=== PATIENT | female | born 1940 | race African-American/Black ===

== ENCOUNTER 2022-04-21 21:34 | Inpatient (IN) | payer OTHER ==
[2022-04-21] MEDS ORDERED: ACETAMINOPHEN 1000 MG/100 ML BAG IVPB ONE (23:01)
[2022-04-21] MEDS ORDERED: ACETAMINOPHEN INJECTION 100 ML IVPB ONE (23:09)
[2022-04-21 23:36] LABS: BASO % 0.4 % (0-2.0); EOS % 0.6 % (0-4.5); HEMATOCRIT 37.4 % (32.4-45.2); HEMOGLOBIN 12.4 GM/dL (10.7-15.3); LYMPH % 14.5 % (8-40); MCH 27.8 pg (25.7-33.7); MCHC 33.1 g/dl (32.0-36.0); MEAN PLT VOLUME 7.4 fl (7.5-11.1); MONO % 6.1 % (3.8-10.2); NEUT % 78.4 % (42.8-82.8); PLATELET COUNT 292 10^3/uL (134-434); RBC 4.45 M/mm3 (3.60-5.2); RDW 12.3 % (11.6-15.6); WHITE BLOOD COUNT 6.2 K/mm3 (4.0-10.0)
[2022-04-21 23:47] LABS: ACTIVATED PTT 35.2 SECONDS (25.2-36.5); INR 1.05 (0.83-1.09); PROTHROMBIN TIME (PATIENT) 12.1 SEC (9.7-13.0)
[2022-04-21 23:55] LABS: CHLORIDE 98 mmol/L (98-107); SODIUM 131 mmol/L (136-145)
[2022-04-21 23:57] LABS: CALCIUM 8.8 mg/dL (8.5-10.1)
[2022-04-21 23:58] LABS: ALBUMIN 3.5 g/dl (3.4-5.0); ANION GAP 5 MMOL/L (8-16); BLOOD UREA NITROGEN 22.6 mg/dL (7-18); CO2 28 mmol/L (21-32); GLUCOSE,RANDOM 351 mg/dL (74-106)
[2022-04-22 00:01] LABS: CREATININE 1.2 mg/dL (0.55-1.3); SGOT/AST 30 U/L (15-37)
[2022-04-22 00:03] LABS: BILIRUBIN,TOTAL 0.5 mg/dL (0.2-1); TOT PROT 6.8 g/dl (6.4-8.2)
[2022-04-22 00:04] LABS: ALK PHOS 91 U/L (45-117)
[2022-04-22 00:06] LABS: N-TERMINAL BNP 81.1 pg/ml (5-450)
[2022-04-22 00:27] LABS: EPI CELLS 8 /uL (0-25.1); HYALINE CASTS 1 /uL (0-3.1); PH,URINE 5.5 (5.0-8.0); URINE APPEARANCE TURBID; URINE BACTERIA 341 /uL (0-1359); URINE BILIRUBIN NEGATIVE (NEGATIVE); URINE COLOR YELLOW; URINE GLUCOSE (UA) 2+ (NEGATIVE); URINE KETONE TRACE (NEGATIVE); URINE LEUK ESTERASE 3+ (NEGATIVE); URINE NITRITE NEGATIVE (NEGATIVE); URINE PROTEIN 2+ (NEGATIVE); URINE RBC 24 /uL (0-23.9); URINE WBC 1817 /uL (0-25.8)
[2022-04-22 00:30] LABS: SGPT/ALT < 6 U/L (13-61)
[2022-04-22] MEDS ORDERED: CEFTRIAXONE 1 GM in DEXTROSE 5%-WATER - 100 ML IVPB ONE (00:41)
[2022-04-22] MEDS ORDERED: CEFTRIAXONE 1 GM/50 ML BAG ONE (01:22)
[2022-04-22 02:16] LABS: CALCIUM 8.4 mg/dL (8.5-10.1)
[2022-04-22 02:17] LABS: BLOOD UREA NITROGEN 22.4 mg/dL (7-18)
[2022-04-22 02:20] LABS: CREATININE 1.1 mg/dL (0.55-1.3)
[2022-04-22] MEDS ORDERED: ACETAMINOPHEN INJECTION 100 ML IVPB ONE ×3 (04:53→17:39)
[2022-04-22] MEDS: SODIUM CHLORIDE 1,000 ML IV SCH (05:00)
[2022-04-22] MEDS: ACETAMINOPHEN 1000 MG/100 ML BAG IVPB SCH ×2 (05:00→09:38)
[2022-04-22 07:34] LABS: BASO % 0.3 % (0-2.0); EOS % 0.4 % (0-4.5); HEMATOCRIT 33.8 % (32.4-45.2); HEMOGLOBIN 11.3 GM/dL (10.7-15.3); LYMPH % 14.5 % (8-40); MCH 28.1 pg (25.7-33.7); MCHC 33.5 g/dl (32.0-36.0); MEAN CELL VOLUME 83.7 fl (80-96); MEAN PLT VOLUME 7.7 fl (7.5-11.1); NEUT % 76.8 % (42.8-82.8); PLATELET COUNT 253 10^3/uL (134-434); RBC 4.04 M/mm3 (3.60-5.2); RDW 12.5 % (11.6-15.6); WHITE BLOOD COUNT 5.9 K/mm3 (4.0-10.0)
[2022-04-22 08:01] LABS: CHLORIDE 100 mmol/L (98-107); SODIUM 136 mmol/L (136-145)
[2022-04-22 08:10] LABS: CALCIUM 8.4 mg/dL (8.5-10.1)
[2022-04-22 08:11] LABS: ALBUMIN 3.2 g/dl (3.4-5.0); ANION GAP 10 MMOL/L (8-16); BLOOD UREA NITROGEN 19.4 mg/dL (7-18); CO2 26 mmol/L (21-32); GLUCOSE,RANDOM 264 mg/dL (74-106); MAGNESIUM 1.8 mg/dL (1.8-2.4)
[2022-04-22 08:14] LABS: PHOSPHOROUS 3.1 mg/dL (2.5-4.9); SGOT/AST 20 U/L (15-37); SGPT/ALT < 6 U/L (13-61)
[2022-04-22 08:16] LABS: BILIRUBIN,TOTAL 0.7 mg/dL (0.2-1)
[2022-04-22 08:17] LABS: ALK PHOS 77 U/L (45-117)
[2022-04-22] MEDS: INSULIN SLIDING SCALE (NOVOLOG) 1 VIAL SQ SCH ×4 (08:37→21:44)
[2022-04-22] MEDS ORDERED: traMADol HCL 50 MG TABLET PO PRN (11:03)
[2022-04-22] MEDS ORDERED: traMADol HCL 50 MG TABLET ONE (12:19)
[2022-04-22] MEDS ORDERED: INSULIN (NOVOLOG) ASPART 100 UNITS/ML 10ML VIAL ONE ×2 (14:20→17:40)
[2022-04-22] MEDS: ACETAMINOPHEN 1000 MG/100 ML BAG IVPB PRN (17:47)
[2022-04-22] MEDS: CEFTRIAXONE 1 GM in DEXTROSE 5%-WATER - 50 ML IVPB SCH (21:42)
[2022-04-23 00:26] VITALS: BMI 23.2
[2022-04-23] MEDS: ACETAMINOPHEN 1000 MG/100 ML BAG IVPB PRN ×3 (05:36→20:15)
[2022-04-23] MEDS: SODIUM CHLORIDE 1,000 ML IV SCH (05:37)
[2022-04-23] MEDS: INSULIN SLIDING SCALE (NOVOLOG) 1 VIAL SQ SCH ×4 (06:54→23:11)
[2022-04-23 07:52] LABS: BASO % 0.3 % (0-2.0); EOS % 1.6 % (0-4.5); HEMATOCRIT 34.1 % (32.4-45.2); HEMOGLOBIN 11.3 GM/dL (10.7-15.3); LYMPH % 21.7 % (8-40); MCH 28.2 pg (25.7-33.7); MCHC 33.2 g/dl (32.0-36.0); MEAN CELL VOLUME 84.9 fl (80-96); MEAN PLT VOLUME 7.4 fl (7.5-11.1); MONO % 7.2 % (3.8-10.2); NEUT % 69.2 % (42.8-82.8); PLATELET COUNT 228 10^3/uL (134-434); RBC 4.02 M/mm3 (3.60-5.2); RDW 12.2 % (11.6-15.6); WHITE BLOOD COUNT 6.3 K/mm3 (4.0-10.0)
[2022-04-23 08:12] LABS: BLOOD UREA NITROGEN 23.5 mg/dL (7-18)
[2022-04-23 08:15] LABS: CREATININE 1.1 mg/dL (0.55-1.3)
[2022-04-23 08:16] LABS: INR 1.13 (0.83-1.09)
[2022-04-23 08:29] LABS: ACTIVATED PTT 32.6 SECONDS (25.2-36.5)
[2022-04-23] MEDS ORDERED: ROPIVACAINE HCL 0.5% 30ML VIAL ONE (14:38)
[2022-04-23] MEDS ORDERED: BUPIVACAINE HCL/PF 0.5% (5MG/ML) 10 ML VIAL ONE (14:38)
[2022-04-23] MEDS ORDERED: DEXAMETHASONE SOD PHOSPHATE 10 MG/1 ML VIAL ONE (14:39)
[2022-04-23] MEDS ORDERED: MIDAZOLAM HCL 2 MG/2 ML SINGLE DOSE VIAL ONE ×3 (14:41→18:51)
[2022-04-23] MEDS ORDERED: ceFAZolin SODIUM 1 GM VIAL IVPB ONE (17:20)
[2022-04-23] MEDS ORDERED: VANCOMYCIN 1,000 MG VIAL (RESTRICTED TO ID ONLY) ONE (18:27)
[2022-04-23] MEDS ORDERED: ONDANSETRON 4 MG/2 ML VIAL ONE (18:28)
[2022-04-23] MEDS ORDERED: DEXAMETHASONE SOD PHOSPHATE 4 MG/1 ML VIAL ONE (18:28)
[2022-04-23] MEDS ORDERED: ceFAZolin SODIUM 1 GM VIAL ONE (18:28)
[2022-04-23] MEDS ORDERED: ONDANSETRON 4 MG/2 ML VIAL IVPUSH PRN ×3 (19:45→22:40)
[2022-04-23] MEDS ORDERED: MAG HYDROX/AL HYDROX/SIMETH 30 ML UNIT-DOSE CUP PO PRN ×2 (19:45→22:40)
[2022-04-23] MEDS ORDERED: ACETAMINOPHEN 1000 MG/100 ML BAG IVPB ONE (19:50)
[2022-04-23] MEDS ORDERED: oxyCODONE HCL 5 MG TABLET PO PRN ×2 (19:59→22:40)
[2022-04-23] MEDS ORDERED: LACTATED RINGERS SOLUTION 1,000 ML IV SCH (20:00)
[2022-04-23] MEDS ORDERED: ACETAMINOPHEN INJECTION 100 ML IVPB ONE (20:10)
[2022-04-23] MEDS ORDERED: SENNOSIDES/DOCUSATE COMBO (SENNA PLUS) TABLET (UD) PO SCH (22:00)
[2022-04-23] MEDS ORDERED: GABAPENTIN 300 MG CAPSULE PO SCH (22:00)
[2022-04-23] MEDS: LACTATED RINGERS SOLUTION 1,000 ML IV SCH (23:09)
[2022-04-23] MEDS: CEFTRIAXONE 1 GM in DEXTROSE 5%-WATER - 50 ML IVPB SCH (23:13)
[2022-04-24] MEDS ORDERED: CEFAZOLIN SODIUM 2 GM in DEXTROSE 5%-WATER 100 ML IVPB SCH (01:00)
[2022-04-24] MEDS: CEFAZOLIN SODIUM 2 GM in DEXTROSE 5%-WATER 100 ML IVPB SCH ×3 (01:00→09:44)
[2022-04-24] MEDS: ACETAMINOPHEN 1000 MG/100 ML BAG IVPB SCH ×3 (06:38→22:14)
[2022-04-24] MEDS: INSULIN SLIDING SCALE (NOVOLOG) 1 VIAL SQ SCH ×4 (06:39→22:25)
[2022-04-24 08:25] LABS: HEMATOCRIT 29.1 % (32.4-45.2); HEMOGLOBIN 9.7 GM/dL (10.7-15.3); MCH 28.2 pg (25.7-33.7); MCHC 33.4 g/dl (32.0-36.0); MEAN CELL VOLUME 84.3 fl (80-96); PLATELET COUNT 238 10^3/uL (134-434); RBC 3.46 M/mm3 (3.60-5.2); RDW 11.9 % (11.6-15.6); WHITE BLOOD COUNT 8.8 K/mm3 (4.0-10.0)
[2022-04-24 08:46] LABS: CALCIUM 8.2 mg/dL (8.5-10.1)
[2022-04-24 08:47] LABS: BLOOD UREA NITROGEN 24.2 mg/dL (7-18)
[2022-04-24 08:50] LABS: CREATININE 1.4 mg/dL (0.55-1.3)
[2022-04-24] MEDS: ENOXAPARIN NA (PORCINE) 40 MG/0.4 ML DISP.SYRIN SQ SCH (09:45)
[2022-04-24] MEDS: GABAPENTIN 300 MG CAPSULE PO SCH ×2 (09:45→22:18)
[2022-04-24] MEDS: PANTOPRAZOLE 40 MG TABLET PO SCH (09:45)
[2022-04-24] MEDS: SENNOSIDES/DOCUSATE COMBO (SENNA PLUS) TABLET (UD) PO SCH ×2 (09:45→22:19)
[2022-04-24] MEDS: oxyCODONE HCL 5 MG TABLET PO PRN (09:46)
[2022-04-24] MEDS ORDERED: ENOXAPARIN NA (PORCINE) 40 MG/0.4 ML DISP.SYRIN SQ SCH (10:00)
[2022-04-24] MEDS ORDERED: PANTOPRAZOLE 40 MG TABLET PO SCH (10:00)
[2022-04-24] MEDS: CEFTRIAXONE 1 GM in DEXTROSE 5%-WATER - 50 ML IVPB SCH (16:49)
[2022-04-25] MEDS: LACTATED RINGERS SOLUTION 1,000 ML IV SCH ×2 (03:28→15:04)
[2022-04-25] MEDS: ACETAMINOPHEN 1000 MG/100 ML BAG IVPB SCH ×3 (03:45→20:48)
[2022-04-25] MEDS: INSULIN SLIDING SCALE (NOVOLOG) 1 VIAL SQ SCH ×4 (06:23→21:06)
[2022-04-25 08:27] LABS: BASO % 0.4 % (0-2.0); EOS % 1.2 % (0-4.5); HEMOGLOBIN 7.2 GM/dL (10.7-15.3); LYMPH % 23.2 % (8-40); MCH 28.7 pg (25.7-33.7); MCHC 34.1 g/dl (32.0-36.0); MEAN PLT VOLUME 7.6 fl (7.5-11.1); NEUT % 63.2 % (42.8-82.8); PLATELET COUNT 193 10^3/uL (134-434); RDW 12.4 % (11.6-15.6); WHITE BLOOD COUNT 7.4 K/mm3 (4.0-10.0)
[2022-04-25 08:42] LABS: CHLORIDE 106 mmol/L (98-107); SODIUM 137 mmol/L (136-145)
[2022-04-25 08:52] LABS: GLUCOSE,RANDOM 202 mg/dL (74-106)
[2022-04-25 08:53] LABS: ANION GAP 8 MMOL/L (8-16); CALCIUM 7.7 mg/dL (8.5-10.1); CO2 24 mmol/L (21-32); MAGNESIUM 1.8 mg/dL (1.8-2.4); SGPT/ALT < 6 U/L (13-61)
[2022-04-25 08:54] LABS: CREATININE 1.7 mg/dL (0.55-1.3); SGOT/AST 28 U/L (15-37)
[2022-04-25 08:55] LABS: TOT PROT 4.6 g/dl (6.4-8.2)
[2022-04-25 08:56] LABS: BILIRUBIN,TOTAL 0.2 mg/dL (0.2-1)
[2022-04-25 08:57] LABS: ALBUMIN 2.3 g/dl (3.4-5.0); ALK PHOS 62 U/L (45-117)
[2022-04-25] MEDS: CEFTRIAXONE 1 GM in DEXTROSE 5%-WATER - 50 ML IVPB SCH (09:59)
[2022-04-25] MEDS: PANTOPRAZOLE 40 MG TABLET PO SCH (10:01)
[2022-04-25] MEDS: GABAPENTIN 300 MG CAPSULE PO SCH ×2 (10:01→21:09)
[2022-04-25] MEDS: ENOXAPARIN NA (PORCINE) 40 MG/0.4 ML DISP.SYRIN SQ SCH (10:01)
[2022-04-25] MEDS: SENNOSIDES/DOCUSATE COMBO (SENNA PLUS) TABLET (UD) PO SCH ×2 (10:01→21:09)
[2022-04-25] MEDS: oxyCODONE HCL 5 MG TABLET PO PRN (10:02)
[2022-04-25] MEDS: HEPARIN NA (PORCINE) 5,000 UNITS/ML 1ML VIAL SQ SCH ×2 (13:42→21:09)
[2022-04-25 19:51] LABS: EPI CELLS 3 /uL (0-25.1); HYALINE CASTS 0 /uL (0-3.1); PH,URINE 5.5 (5.0-8.0); URINE APPEARANCE CLEAR; URINE BACTERIA 3 /uL (0-1359); URINE BILIRUBIN NEGATIVE (NEGATIVE); URINE COLOR YELLOW; URINE GLUCOSE (UA) NEGATIVE (NEGATIVE); URINE KETONE NEGATIVE (NEGATIVE); URINE LEUK ESTERASE NEGATIVE (NEGATIVE); URINE NITRITE NEGATIVE (NEGATIVE); URINE PROTEIN TRACE (NEGATIVE); URINE RBC 757 /uL (0-23.9); URINE UROBILINOGEN 0.2 mg/dL (0.2-1.0); URINE WBC 5 /uL (0-25.8)
[2022-04-25 19:54] LABS: BASO % 0.2 % (0-2.0); EOS % 2.1 % (0-4.5); HEMATOCRIT 20.5 % (32.4-45.2); LYMPH % 20.4 % (8-40); MCH 28.3 pg (25.7-33.7); MCHC 33.5 g/dl (32.0-36.0); MEAN CELL VOLUME 84.6 fl (80-96); MEAN PLT VOLUME 7.7 fl (7.5-11.1); MONO % 11.7 % (3.8-10.2); NEUT % 65.6 % (42.8-82.8); PLATELET COUNT 191 10^3/uL (134-434); RBC 2.43 M/mm3 (3.60-5.2); RDW 12.6 % (11.6-15.6); WHITE BLOOD COUNT 7.5 K/mm3 (4.0-10.0)
[2022-04-25 19:56] LABS: HEMOGLOBIN 6.9 GM/dL (10.7-15.3)
[2022-04-25] MEDS ORDERED: INSULIN (NOVOLOG) ASPART 100 UNITS/ML 10ML VIAL ONE (21:05)
[2022-04-26] MEDS: LACTATED RINGERS SOLUTION 1,000 ML IV SCH ×2 (03:54→09:39)
[2022-04-26] MEDS: ACETAMINOPHEN 1000 MG/100 ML BAG IVPB SCH ×3 (03:54→22:06)
[2022-04-26] MEDS: HEPARIN NA (PORCINE) 5,000 UNITS/ML 1ML VIAL SQ SCH ×3 (06:31→14:41)
[2022-04-26] MEDS: INSULIN SLIDING SCALE (NOVOLOG) 1 VIAL SQ SCH ×4 (06:32→22:05)
[2022-04-26 08:13] LABS: BASO % 0.3 % (0-2.0); EOS % 3.2 % (0-4.5); HEMATOCRIT 19.2 % (32.4-45.2); LYMPH % 26.9 % (8-40); MCH 28.2 pg (25.7-33.7); MCHC 33.6 g/dl (32.0-36.0); MEAN CELL VOLUME 84.2 fl (80-96); MEAN PLT VOLUME 7.7 fl (7.5-11.1); MONO % 9.2 % (3.8-10.2); NEUT % 60.4 % (42.8-82.8); PLATELET COUNT 183 10^3/uL (134-434); RBC 2.29 M/mm3 (3.60-5.2); RDW 12.6 % (11.6-15.6)
[2022-04-26 08:24] LABS: CHLORIDE 109 mmol/L (98-107); SODIUM 137 mmol/L (136-145)
[2022-04-26 08:30] LABS: CALCIUM 7.6 mg/dL (8.5-10.1)
[2022-04-26 08:31] LABS: ANION GAP 4 MMOL/L (8-16); BLOOD UREA NITROGEN 33.4 mg/dL (7-18); CO2 24 mmol/L (21-32); GLUCOSE,RANDOM 161 mg/dL (74-106); HEMOGLOBIN 6.5 GM/dL (10.7-15.3); MAGNESIUM 1.9 mg/dL (1.8-2.4)
[2022-04-26 08:34] LABS: CREATININE 1.4 mg/dL (0.55-1.3); SGOT/AST 28 U/L (15-37)
[2022-04-26 08:35] LABS: BILIRUBIN,TOTAL 0.2 mg/dL (0.2-1)
[2022-04-26 08:36] LABS: TOT PROT 4.4 g/dl (6.4-8.2)
[2022-04-26 08:37] LABS: ALK PHOS 55 U/L (45-117)
[2022-04-26 08:42] LABS: SGPT/ALT < 6 U/L (13-61)
[2022-04-26] MEDS: GABAPENTIN 300 MG CAPSULE PO SCH (09:37)
[2022-04-26] MEDS: SENNOSIDES/DOCUSATE COMBO (SENNA PLUS) TABLET (UD) PO SCH ×2 (09:37→22:07)
[2022-04-26] MEDS: PANTOPRAZOLE 40 MG TABLET PO SCH (09:37)
[2022-04-26] MEDS: CEFTRIAXONE 1 GM in DEXTROSE 5%-WATER - 50 ML IVPB SCH (09:37)
[2022-04-26] MEDS: oxyCODONE HCL 5 MG TABLET PO PRN (12:58)
[2022-04-26] MEDS ORDERED: ACETAMINOPHEN 325 MG TABLET (FP) PO ONE (15:17)
[2022-04-27] MEDS: ACETAMINOPHEN 1000 MG/100 ML BAG IVPB SCH (05:10)
[2022-04-27] MEDS: INSULIN SLIDING SCALE (NOVOLOG) 1 VIAL SQ SCH ×4 (06:56→23:11)
[2022-04-27 08:27] LABS: BASO % 0.5 % (0-2.0); EOS % 2.6 % (0-4.5); HEMOGLOBIN 9.9 GM/dL (10.7-15.3); MCH 29.3 pg (25.7-33.7); MCHC 34.1 g/dl (32.0-36.0); MEAN PLT VOLUME 8.2 fl (7.5-11.1); MONO % 9.9 % (3.8-10.2); PLATELET COUNT 189 10^3/uL (134-434); RBC 3.38 M/mm3 (3.60-5.2); RDW 12.5 % (11.6-15.6); WHITE BLOOD COUNT 8.8 K/mm3 (4.0-10.0)
[2022-04-27 08:43] LABS: CHLORIDE 106 mmol/L (98-107); SODIUM 137 mmol/L (136-145)
[2022-04-27 08:52] LABS: SGPT/ALT < 6 U/L (13-61)
[2022-04-27 08:53] LABS: BILIRUBIN,TOTAL 0.3 mg/dL (0.2-1); CREATININE 1.1 mg/dL (0.55-1.3); TOT PROT 4.9 g/dl (6.4-8.2)
[2022-04-27 08:55] LABS: ALK PHOS 81 U/L (45-117)
[2022-04-27 08:57] LABS: ALBUMIN 2.1 g/dl (3.4-5.0); ANION GAP 8 MMOL/L (8-16); BLOOD UREA NITROGEN 25.7 mg/dL (7-18); CALCIUM 7.4 mg/dL (8.5-10.1); CO2 23 mmol/L (21-32); GLUCOSE,RANDOM 209 mg/dL (74-106); MAGNESIUM 1.8 mg/dL (1.8-2.4)
[2022-04-27 09:00] LABS: SGOT/AST 43 U/L (15-37)
[2022-04-27] MEDS: PANTOPRAZOLE 40 MG TABLET PO SCH (10:34)
[2022-04-27] MEDS: SENNOSIDES/DOCUSATE COMBO (SENNA PLUS) TABLET (UD) PO SCH ×2 (10:34→23:05)
[2022-04-27] MEDS: LACTATED RINGERS SOLUTION 1,000 ML IV SCH (14:51)
[2022-04-27] MEDS: ENOXAPARIN NA (PORCINE) 30 MG/0.3 ML DISP.SYRIN SQ SCH (14:51)
[2022-04-27] MEDS: oxyCODONE HCL 5 MG TABLET PO PRN (23:04)
[2022-04-28] MEDS: INSULIN SLIDING SCALE (NOVOLOG) 1 VIAL SQ SCH ×4 (06:28→21:22)
[2022-04-28 08:05] LABS: HEMATOCRIT 31.3 % (32.4-45.2); HEMOGLOBIN 10.7 GM/dL (10.7-15.3); MCH 29.2 pg (25.7-33.7); MCHC 34.2 g/dl (32.0-36.0); MEAN CELL VOLUME 85.2 fl (80-96); MEAN PLT VOLUME 7.7 fl (7.5-11.1); PLATELET COUNT 236 10^3/uL (134-434); RBC 3.67 M/mm3 (3.60-5.2); RDW 13.2 % (11.6-15.6); WHITE BLOOD COUNT 9.9 K/mm3 (4.0-10.0)
[2022-04-28 08:32] LABS: CHLORIDE 104 mmol/L (98-107); SODIUM 138 mmol/L (136-145)
[2022-04-28 08:40] LABS: ALBUMIN 2.3 g/dl (3.4-5.0); ANION GAP 10 MMOL/L (8-16); BLOOD UREA NITROGEN 19.6 mg/dL (7-18); CO2 24 mmol/L (21-32)
[2022-04-28 08:41] LABS: GLUCOSE,RANDOM 148 mg/dL (74-106)
[2022-04-28 08:43] LABS: PHOSPHOROUS 2.8 mg/dL (2.5-4.9); SGOT/AST 58 U/L (15-37)
[2022-04-28 08:44] LABS: SGPT/ALT < 6 U/L (13-61)
[2022-04-28 08:45] LABS: BILIRUBIN,TOTAL 0.7 mg/dL (0.2-1); TOT PROT 5.3 g/dl (6.4-8.2)
[2022-04-28 08:57] LABS: ALK PHOS 118 U/L (45-117)
[2022-04-28] MEDS: PANTOPRAZOLE 40 MG TABLET PO SCH (10:35)
[2022-04-28] MEDS: ENOXAPARIN NA (PORCINE) 30 MG/0.3 ML DISP.SYRIN SQ SCH (10:35)
[2022-04-28] MEDS: SENNOSIDES/DOCUSATE COMBO (SENNA PLUS) TABLET (UD) PO SCH ×2 (10:35→21:14)
[2022-04-28] MEDS: LACTATED RINGERS SOLUTION 1,000 ML IV SCH (13:59)
[2022-04-29 04:55] VITALS: RESP 18
[2022-04-29] MEDS: INSULIN SLIDING SCALE (NOVOLOG) 1 VIAL SQ SCH ×2 (06:34→12:19)
[2022-04-29] MEDS ORDERED: glipiZIDE 5 MG TABLET (FP) PO SCH (07:00)
[2022-04-29] MEDS ORDERED: AMINO ACIDS/PROTEIN HYDROLYS 30 ML LIQUID.PKT PO SCH (08:00)
[2022-04-29] MEDS ORDERED: LISINOPRIL 5 MG TABLET PO SCH (10:00)
[2022-04-29] MEDS ORDERED: MULTIVITAMINS THER W-MINERALS COMBO TABLET (FP) PO SCH (10:00)
[2022-04-29] MEDS: PANTOPRAZOLE 40 MG TABLET PO SCH (10:09)
[2022-04-29] MEDS: ENOXAPARIN NA (PORCINE) 30 MG/0.3 ML DISP.SYRIN SQ SCH (10:09)
[2022-04-29] MEDS: SENNOSIDES/DOCUSATE COMBO (SENNA PLUS) TABLET (UD) PO SCH (10:09)
[2022-04-29 10:43] LABS: HEMATOCRIT 33.1 % (32.4-45.2); HEMOGLOBIN 10.9 GM/dL (10.7-15.3); MCH 28.5 pg (25.7-33.7); MEAN CELL VOLUME 86.4 fl (80-96); MEAN PLT VOLUME 7.2 fl (7.5-11.1); PLATELET COUNT 280 10^3/uL (134-434); RBC 3.83 M/mm3 (3.60-5.2); RDW 13.6 % (11.6-15.6); WHITE BLOOD COUNT 9.7 K/mm3 (4.0-10.0)
[2022-04-29 11:31] VITALS: BP 121/70; PULSE 90; TEMP 97.8
[2022-04-29] MEDS ORDERED: INSULIN (LEVEMIR) 100 UNITS/ML UNITS SQ SCH (22:00)
== END 2022-04-29 14:51 | DRG 521 ==
LOC: JER 21:34 → JERBED 23:32 → J4W 04-22 18:23
PROVIDERS: ADMIT Internal Medicine; ATTEND Internal Medicine
PROC: 0SRR0J9 Replacement of Right Hip Joint, Femoral Surface with Synthetic Substitute, Cemented, Open Approach (ICD-10-PCS; principal; 2022-04-23 16:00)
PROC: 30233N1 Transfusion of Nonautologous Red Blood Cells into Peripheral Vein, Percutaneous Approach (ICD-10-PCS; 2022-04-25)
DX: S72.001A Fracture of unspecified part of neck of right femur, initial encounter for closed fracture (principal); G93.41 Metabolic encephalopathy; N39.0 Urinary tract infection, site not specified; M62.82 Rhabdomyolysis; N17.9 Acute kidney failure, unspecified; D62 Acute posthemorrhagic anemia; J98.11 Atelectasis; J95.89 Other postprocedural complications and disorders of respiratory system, not elsewhere classified; E87.1 Hypo-osmolality and hyponatremia; E78.5 Hyperlipidemia, unspecified; I10 Essential (primary) hypertension; E11.65 Type 2 diabetes mellitus with hyperglycemia; R80.9 Proteinuria, unspecified; W19.XXXA Unspecified fall, initial encounter; Y93.9 Activity, unspecified; Y92.89 Other specified places as the place of occurrence of the external cause; Y99.9 Unspecified external cause status
CPT/HCPCS: 0241U-QW; 36415; 36430; 70450-TC; 71045-TC-FY; 72125-TC; 72170-TC-FY; 72192-TC; 73502-TC-RT-FY; 76775-TC; 80048; 80053; 81003; 82550; 82553; 82962; 83036; 83735; 83880; 84100; 84484; 85025; 85027; 85610; 85730; 86078; 86850; 86900; 86901; 86922; 87040; 87086; 88305-TC; 88311-TC; 93005; 93010; 93971-TC; 94010; 94760; 97116-GP; 97162-GP; 99285-25; C1776; C1889; C9803-CS; J1100; J1644; P9058; U0003; U0005

== ENCOUNTER 2023-04-29 12:57 | Inpatient (IN) | payer OTHER ==
[2023-04-29] MEDS ORDERED: LIDOCAINE 5% TOPICAL PATCH TP ONE (16:13)
[2023-04-29] MEDS ORDERED: LIDOCAINE 4% PATCH TP ONE (16:28)
[2023-04-29 18:46] LABS: BASO % 0.4 % (0-2.0); EOS % 1.2 % (0-4.5); HEMATOCRIT 35.6 % (32.4-45.2); HEMOGLOBIN 11.9 GM/dL (10.7-15.3); LYMPH % 20.8 % (8-40); MCH 27.1 pg (25.7-33.7); MCHC 33.5 g/dl (32.0-36.0); MEAN CELL VOLUME 80.9 fl (80-96); MEAN PLT VOLUME 8.3 fl (7.5-11.1); NEUT % 67.6 % (42.8-82.8); PLATELET COUNT 202 10^3/uL (134-434); RDW 13.3 % (11.6-15.6); WHITE BLOOD COUNT 6.3 K/mm3 (4.0-10.0)
[2023-04-29 19:05] LABS: CHLORIDE 102 mmol/L (98-107); POTASSIUM 4.5 mmol/L (3.5-5.1); SODIUM 133 mmol/L (136-145)
[2023-04-29 19:08] LABS: ALBUMIN 2.8 g/dl (3.4-5.0); ANION GAP 6 mmol/L (4-13); BLOOD UREA NITROGEN 21.5 mg/dL (7-18); CO2 26 mmol/L (21-32)
[2023-04-29 19:11] LABS: CREATININE 1.2 mg/dL (0.55-1.3); SGOT/AST 62 U/L (15-37); SGPT/ALT 57 U/L (13-61)
[2023-04-29 19:13] LABS: BILIRUBIN,TOTAL 0.4 mg/dL (0.2-1)
[2023-04-29 19:14] LABS: ALK PHOS 278 U/L (45-117)
[2023-04-29 19:27] LABS: GLUCOSE,RANDOM 414 mg/dL (74-106)
[2023-04-29] MEDS ORDERED: SODIUM CHLORIDE 1,000 ML IV STA (20:00)
[2023-04-29] MEDS ORDERED: ACETAMINOPHEN INJECTION 100 ML IVPB ONE (20:17)
[2023-04-29] MEDS ORDERED: ACETAMINOPHEN 1000 MG/100 ML BAG IVPB ONE (20:23)
[2023-04-29 21:16] LABS: VENOUS BASE EXCESS 0.3 mmol/L (-2-2); VENOUS O2 SATURATION 78.1 % (70-80); VENOUS PH 7.397 (7.310-7.410)
[2023-04-29] MEDS ORDERED: LIDOCAINE PATCH REMOVAL MC ONE (22:00)
[2023-04-30] MEDS ORDERED: ACETAMINOPHEN 325 MG TABLET (FP) PO PRN (04:31)
[2023-04-30] MEDS: SODIUM CHLORIDE 1,000 ML IV SCH ×2 (05:44→20:59)
[2023-04-30 07:10] LABS: BASO % 0.3 % (0-2.0); EOS % 2.4 % (0-4.5); HEMATOCRIT 36.2 % (32.4-45.2); HEMOGLOBIN 11.8 GM/dL (10.7-15.3); LYMPH % 22.3 % (8-40); MCH 27.2 pg (25.7-33.7); MCHC 32.7 g/dl (32.0-36.0); MEAN CELL VOLUME 83.1 fl (80-96); MEAN PLT VOLUME 8.2 fl (7.5-11.1); PLATELET COUNT 196 10^3/uL (134-434); RBC 4.36 M/mm3 (3.60-5.2); RDW 13.1 % (11.6-15.6); WHITE BLOOD COUNT 5.1 K/mm3 (4.0-10.0)
[2023-04-30 07:36] LABS: POTASSIUM 4.4 mmol/L (3.5-5.1)
[2023-04-30 07:46] LABS: CALCIUM 8.8 mg/dL (8.5-10.1)
[2023-04-30 07:47] LABS: BLOOD UREA NITROGEN 21.8 mg/dL (7-18)
[2023-04-30 07:48] LABS: ALBUMIN 2.7 g/dl (3.4-5.0); MAGNESIUM 1.7 mg/dL (1.8-2.4)
[2023-04-30 07:50] LABS: CREATININE 1.1 mg/dL (0.55-1.3); PHOSPHOROUS 2.9 mg/dL (2.5-4.9)
[2023-04-30 07:51] LABS: TOT PROT 5.8 g/dl (6.4-8.2)
[2023-04-30 07:52] LABS: BILIRUBIN,TOTAL 0.4 mg/dL (0.2-1)
[2023-04-30] MEDS: INSULIN ASPART SLIDING SCALE (NOVOLOG) 1 VIAL SQ SCH ×4 (08:23→21:57)
[2023-04-30] MEDS ORDERED: ENOXAPARIN NA (PORCINE) 40 MG/0.4 ML DISP.SYRIN SQ SCH (10:00)
[2023-04-30] MEDS ORDERED: INSULIN (LEVEMIR) 100 UNITS/ML UNITS SQ ONE (11:31)
[2023-04-30] MEDS ORDERED: PANTOPRAZOLE 40 MG TABLET PO ONE (11:31)
[2023-04-30] MEDS ORDERED: LISINOPRIL 5 MG TABLET ONE (11:31)
[2023-04-30] MEDS: INSULIN (LEVEMIR) 100 UNITS/ML UNITS SQ SCH ×2 (11:42→21:59)
[2023-04-30] MEDS: LISINOPRIL 5 MG TABLET PO SCH (11:42)
[2023-04-30] MEDS: PANTOPRAZOLE 40 MG TABLET PO SCH (11:42)
[2023-05-01 00:16] VITALS: BMI 24.9
[2023-05-01] MEDS: INSULIN (LEVEMIR) 100 UNITS/ML UNITS SQ SCH ×2 (06:18→22:38)
[2023-05-01] MEDS: INSULIN ASPART SLIDING SCALE (NOVOLOG) 1 VIAL SQ SCH ×4 (06:34→22:38)
[2023-05-01] MEDS: SODIUM CHLORIDE 1,000 ML IV SCH (09:18)
[2023-05-01] MEDS: LISINOPRIL 5 MG TABLET PO SCH (09:23)
[2023-05-01] MEDS: PANTOPRAZOLE 40 MG TABLET PO SCH (09:24)
[2023-05-01 10:47] LABS: BASO % 0.4 % (0-2.0); HEMATOCRIT 32.9 % (32.4-45.2); HEMOGLOBIN 11.1 GM/dL (10.7-15.3); LYMPH % 27.5 % (8-40); MCH 27.9 pg (25.7-33.7); MCHC 33.8 g/dl (32.0-36.0); MEAN CELL VOLUME 82.7 fl (80-96); MEAN PLT VOLUME 8.6 fl (7.5-11.1); MONO % 9.6 % (3.8-10.2); NEUT % 60.5 % (42.8-82.8); PLATELET COUNT 192 10^3/uL (134-434); RBC 3.98 M/mm3 (3.60-5.2); RDW 13.7 % (11.6-15.6); WHITE BLOOD COUNT 6.1 K/mm3 (4.0-10.0)
[2023-05-01] MEDS: ENOXAPARIN NA (PORCINE) 40 MG/0.4 ML DISP.SYRIN SQ SCH (12:21)
[2023-05-01 17:52] LABS: POTASSIUM 4.7 mmol/L (3.5-5.1)
[2023-05-01 17:54] LABS: CALCIUM 8.4 mg/dL (8.5-10.1)
[2023-05-01 17:55] LABS: BLOOD UREA NITROGEN 22.9 mg/dL (7-18)
[2023-05-01 17:58] LABS: CREATININE 1.4 mg/dL (0.55-1.3)
[2023-05-01 18:15] VITALS: RESP 18
[2023-05-02] MEDS: INSULIN (LEVEMIR) 100 UNITS/ML UNITS SQ SCH ×2 (06:24→22:06)
[2023-05-02] MEDS: INSULIN ASPART SLIDING SCALE (NOVOLOG) 1 VIAL SQ SCH ×4 (06:24→22:06)
[2023-05-02] MEDS: ENOXAPARIN NA (PORCINE) 40 MG/0.4 ML DISP.SYRIN SQ SCH (10:06)
[2023-05-02] MEDS: PANTOPRAZOLE 40 MG TABLET PO SCH (10:06)
[2023-05-02] MEDS: LISINOPRIL 5 MG TABLET PO SCH (10:06)
[2023-05-02 10:59] LABS: BASO % 0.6 % (0-2.0); EOS % 2.2 % (0-4.5); HEMATOCRIT 34.5 % (32.4-45.2); HEMOGLOBIN 11.6 GM/dL (10.7-15.3); LYMPH % 28.2 % (8-40); MCHC 33.7 g/dl (32.0-36.0); MEAN CELL VOLUME 83.2 fl (80-96); MEAN PLT VOLUME 9.1 fl (7.5-11.1); MONO % 10.9 % (3.8-10.2); NEUT % 58.1 % (42.8-82.8); PLATELET COUNT 194 10^3/uL (134-434); RBC 4.15 M/mm3 (3.60-5.2); RDW 13.7 % (11.6-15.6); WHITE BLOOD COUNT 5.7 K/mm3 (4.0-10.0)
[2023-05-03] MEDS: INSULIN (LEVEMIR) 100 UNITS/ML UNITS SQ SCH ×2 (06:00→21:50)
[2023-05-03] MEDS: INSULIN ASPART SLIDING SCALE (NOVOLOG) 1 VIAL SQ SCH ×4 (06:00→21:49)
[2023-05-03 10:02] LABS: BASO % 0.3 % (0-2.0); HEMATOCRIT 34.4 % (32.4-45.2); HEMOGLOBIN 11.5 GM/dL (10.7-15.3); LYMPH % 18.3 % (8-40); MCH 27.8 pg (25.7-33.7); MCHC 33.5 g/dl (32.0-36.0); MEAN PLT VOLUME 8.5 fl (7.5-11.1); NEUT % 69.4 % (42.8-82.8); PLATELET COUNT 189 10^3/uL (134-434); RBC 4.14 M/mm3 (3.60-5.2); RDW 13.7 % (11.6-15.6); WHITE BLOOD COUNT 7.1 K/mm3 (4.0-10.0)
[2023-05-03 10:23] LABS: POTASSIUM 4.2 mmol/L (3.5-5.1)
[2023-05-03 10:33] LABS: BLOOD UREA NITROGEN 24.8 mg/dL (7-18); CALCIUM 8.4 mg/dL (8.5-10.1); MAGNESIUM 1.5 mg/dL (1.8-2.4)
[2023-05-03 10:35] LABS: PHOSPHOROUS 3.4 mg/dL (2.5-4.9)
[2023-05-03 10:37] LABS: CREATININE 1.3 mg/dL (0.55-1.3)
[2023-05-03] MEDS: ENOXAPARIN NA (PORCINE) 40 MG/0.4 ML DISP.SYRIN SQ SCH (10:54)
[2023-05-03] MEDS: LISINOPRIL 5 MG TABLET PO SCH (10:54)
[2023-05-03] MEDS: PANTOPRAZOLE 40 MG TABLET PO SCH (10:55)
[2023-05-03] MEDS ORDERED: ARTIFICIAL TEARS OPHTHALMIC DROPS OU PRN (13:47)
[2023-05-03] MEDS ORDERED: MAGNESIUM 2GM/50ML STERILE WATER IVPB IVPB ONE (14:45)
[2023-05-04] MEDS: INSULIN (LEVEMIR) 100 UNITS/ML UNITS SQ SCH (06:05)
[2023-05-04] MEDS: INSULIN ASPART SLIDING SCALE (NOVOLOG) 1 VIAL SQ SCH ×3 (06:05→17:09)
[2023-05-04] MEDS: LISINOPRIL 5 MG TABLET PO SCH (09:43)
[2023-05-04] MEDS: PANTOPRAZOLE 40 MG TABLET PO SCH (09:43)
[2023-05-04] MEDS: ENOXAPARIN NA (PORCINE) 40 MG/0.4 ML DISP.SYRIN SQ SCH (09:43)
[2023-05-04] MEDS ORDERED: INSULIN (LEVEMIR) 100 UNITS/ML UNITS SQ SCH (13:15)
[2023-05-04 14:35] VITALS: BP 163/75; PULSE 90; TEMP 97.6
== END 2023-05-04 17:39 | DRG 556 ==
LOC: JER 12:57 → JERBED 18:09 → OBSVTOIN 04-30 04:29 → J5S 04-30 20:10
PROVIDERS: ADMIT Internal Medicine
DX: R26.2 Difficulty in walking, not elsewhere classified (principal); I10 Essential (primary) hypertension; E11.65 Type 2 diabetes mellitus with hyperglycemia; M25.551 Pain in right hip; R74.01 Elevation of levels of liver transaminase levels; E78.5 Hyperlipidemia, unspecified; K21.9 Gastro-esophageal reflux disease without esophagitis
CPT/HCPCS: 0241U-QW; 36415; 72170-TC-FY; 73521-TC-FY; 73700-TC-RT; 76705-TC; 80048; 80053; 82010; 82803; 82962; 83036; 83735; 84100; 85025; 85651; 86140; 86704; 86803; 87340; 87517; 87635; 93005; 93010; 97116-GP; 97162-GP; 99285-25; G0378; J0131

== ENCOUNTER 2024-01-01 10:48 | Inpatient (IN) | payer OTHER ==
[2024-01-01] MEDS: LACTATED RINGERS SOLUTION 1000 ML INFUS.BAG IV ONE (11:35)
[2024-01-01 11:47] LABS: HEMATOCRIT 38.9 % (32.4-45.2); HEMOGLOBIN 12.5 GM/dL (10.7-15.3); MCH 26.3 pg (25.7-33.7); MCHC 32.2 g/dl (32.0-36.0); MEAN CELL VOLUME 81.5 fl (80-96); MEAN PLT VOLUME 8.5 fl (7.5-11.1); PLATELET COUNT 323 10^3/uL (134-434); RBC 4.77 M/mm3 (3.60-5.2); RDW 13.3 % (11.6-15.6); WHITE BLOOD COUNT 12.1 K/mm3 (4.0-10.0)
[2024-01-01 11:49] LABS: VENOUS O2 SATURATION 54.2 % (70-80); VENOUS PCO2 39.9 mmHg (38-52); VENOUS PH 7.296 (7.310-7.410)
[2024-01-01 11:56] LABS: CHLORIDE 98 mmol/L (98-107); SODIUM 131 mmol/L (136-145)
[2024-01-01 11:58] LABS: CALCIUM 9.3 mg/dL (8.5-10.1)
[2024-01-01 11:59] LABS: ALBUMIN 3.1 g/dl (3.4-5.0); BLOOD UREA NITROGEN 24.9 mg/dL (7-18); CO2 19 mmol/L (21-32); MAGNESIUM 2.1 mg/dL (1.8-2.4)
[2024-01-01 12:02] LABS: CREATININE 1.6 mg/dL (0.55-1.3); PHOSPHOROUS 5.4 mg/dL (2.5-4.9); SGOT/AST 56 U/L (15-37); SGPT/ALT 7 U/L (13-61)
[2024-01-01 12:03] LABS: BILIRUBIN,TOTAL 0.6 mg/dL (0.2-1)
[2024-01-01 12:05] LABS: ALK PHOS 111 U/L (45-117)
[2024-01-01 12:06] LABS: ACTIVATED PTT 34.7 SECONDS (25.2-36.5); INR 0.96 (0.83-1.09)
[2024-01-01 12:07] LABS: N-TERMINAL BNP 1241.2 pg/ml (5-450)
[2024-01-01 12:13] LABS: ANION GAP 13 mmol/L (4-13); GLUCOSE,RANDOM 585 mg/dL (74-106); LACTIC ACID 6.4 mmol/L (0.4-2.0); POTASSIUM 6.2 mmol/L (3.5-5.1)
[2024-01-01 12:41] LABS: ANISOCYTOSIS 0; HELMET CELLS 0; HOWELL-JOLLY BODIES 0; MACROCYTOSIS 0; OVALOCYTE 0; ROULEAU 0; SICKELED CELLS 0; TARGET CELLS 0; TEAR DROP CELLS 0; TOXIC GRANULATION 0
[2024-01-01] MEDS: SODIUM CHLORIDE 0.9% 500 ML INFUS.BAG IV ONE (13:13)
[2024-01-01 13:14] LABS: EPI CELLS 3 /uL (0-25.1); HYALINE CASTS 0 /uL (0-3.1); URINE APPEARANCE CLEAR; URINE BACTERIA 3 /uL (0-1359); URINE BILIRUBIN NEGATIVE (NEGATIVE); URINE COLOR YELLOW; URINE GLUCOSE (UA) 3+ (NEGATIVE); URINE KETONE 1+ (NEGATIVE); URINE LEUK ESTERASE NEGATIVE (NEGATIVE); URINE NITRITE NEGATIVE (NEGATIVE); URINE PROTEIN 3+ (NEGATIVE); URINE RBC 28 /uL (0-23.9); URINE UROBILINOGEN 0.2 mg/dL (0.2-1.0); URINE WBC 5 /uL (0-25.8)
[2024-01-01] MEDS ORDERED: SODIUM CHLORIDE 0.45% 1,000 ML IV SCH (13:15)
[2024-01-01 13:23] LABS: CHLORIDE 102 mmol/L (98-107); POTASSIUM 4.9 mmol/L (3.5-5.1); SODIUM 134 mmol/L (136-145)
[2024-01-01 13:25] LABS: CALCIUM 9.1 mg/dL (8.5-10.1)
[2024-01-01 13:26] LABS: ALBUMIN 3.2 g/dl (3.4-5.0); ANION GAP 11 mmol/L (4-13); BLOOD UREA NITROGEN 23.7 mg/dL (7-18); CO2 21 mmol/L (21-32)
[2024-01-01 13:29] LABS: CREATININE 1.4 mg/dL (0.55-1.3); SGOT/AST 32 U/L (15-37); SGPT/ALT < 6 U/L (13-61)
[2024-01-01 13:30] LABS: BILIRUBIN,TOTAL 0.5 mg/dL (0.2-1)
[2024-01-01 13:31] LABS: TOT PROT 6.5 g/dl (6.4-8.2)
[2024-01-01 13:32] LABS: ALK PHOS 108 U/L (45-117)
[2024-01-01 13:40] LABS: GLUCOSE,RANDOM 488 mg/dL (74-106)
[2024-01-01] MEDS: SODIUM CHLORIDE 0.45% 1,000 ML IV SCH (13:44)
[2024-01-01] MEDS: SODIUM CHLORIDE 0.45%/POT 20 MEQ/1,000 ML INFUS.BAG IV SCH (14:19)
[2024-01-01] MEDS: INSULIN REGULAR 100 UNITS in SODIUM CHLORIDE 99 ML IVPB SCH ×2 (15:00→20:15)
[2024-01-01 16:24] LABS: VENOUS BASE EXCESS -2.3 mmol/L (-2-2); VENOUS O2 SATURATION 58.8 % (70-80); VENOUS PCO2 38.7 mmHg (38-52); VENOUS PH 7.381 (7.310-7.410)
[2024-01-01] MEDS ORDERED: hydrALAZINE HCL 20 MG/ML VIAL IVPUSH PRN (16:30)
[2024-01-01 17:11] LABS: CHLORIDE 105 mmol/L (98-107); POTASSIUM 4.3 mmol/L (3.5-5.1); SODIUM 136 mmol/L (136-145)
[2024-01-01 17:13] LABS: ANION GAP 8 mmol/L (4-13); BLOOD UREA NITROGEN 21.7 mg/dL (7-18); CALCIUM 9.1 mg/dL (8.5-10.1); CO2 24 mmol/L (21-32); GLUCOSE,RANDOM 312 mg/dL (74-106)
[2024-01-01 17:16] LABS: CREATININE 1.4 mg/dL (0.55-1.3); SGOT/AST 28 U/L (15-37); SGPT/ALT < 6 U/L (13-61)
[2024-01-01 17:18] LABS: BILIRUBIN,TOTAL 0.5 mg/dL (0.2-1); TOT PROT 6.3 g/dl (6.4-8.2)
[2024-01-01 17:19] LABS: ALK PHOS 106 U/L (45-117)
[2024-01-01 18:12] VITALS: BMI 25.2
[2024-01-01] MEDS ORDERED: DEXTROSE 50%-WATER - 25 GM/50 ML VIAL IVPUSH PRN (20:06)
[2024-01-01] MEDS: DEXTROSE 5%-0.45% SALINE 1,000 ML IV SCH (20:13)
[2024-01-01] MEDS: HEPARIN NA (PORCINE) 5,000 UNITS/ML 1ML VIAL SQ SCH (21:38)
[2024-01-01] MEDS: MUPIROCIN 2% TOPICAL OINTMENT FOR DECOLONIZATION NS SCH (21:39)
[2024-01-01] MEDS: CHLORHEXIDINE GLUCONATE 4% CLEANSER FOR DECOLONIZATION TP SCH (21:39)
[2024-01-01 21:56] LABS: LACTIC ACID 2.5 mmol/L (0.4-2.0)
[2024-01-02 07:35] LABS: BASO % 0.1 % (0-2.0); HEMATOCRIT 35.5 % (32.4-45.2); LYMPH % 8.3 % (8-40); MCH 27.3 pg (25.7-33.7); MCHC 33.7 g/dl (32.0-36.0); MEAN CELL VOLUME 80.9 fl (80-96); MONO % 6.5 % (3.8-10.2); NEUT % 85.1 % (42.8-82.8); PLATELET COUNT 334 10^3/uL (134-434); RBC 4.39 M/mm3 (3.60-5.2); RDW 13.2 % (11.6-15.6); WHITE BLOOD COUNT 16.9 K/mm3 (4.0-10.0)
[2024-01-02 08:03] LABS: MAGNESIUM 1.8 mg/dL (1.8-2.4)
[2024-01-02 08:07] LABS: INR 1.26 (0.83-1.09); PHOSPHOROUS 2.3 mg/dL (2.5-4.9); PROTHROMBIN TIME (PATIENT) 14.1 SEC (9.7-13.0)
[2024-01-02 08:12] LABS: N-TERMINAL BNP 1389.6 pg/ml (5-450)
[2024-01-02] MEDS: INSULIN (LEVEMIR) 100 UNITS/ML UNITS SQ SCH ×2 (08:47→21:20)
[2024-01-02] MEDS: MAGNESIUM SULFATE IN WATER 2 GM/50 ML IVPB IVPB ONE (09:18)
[2024-01-02] MEDS: PANTOPRAZOLE SODIUM 40 MG VIAL IVPUSH SCH (09:18)
[2024-01-02] MEDS: INSULIN ASPART SLIDING SCALE (NOVOLOG) 1 VIAL SQ SCH (12:14)
[2024-01-02] MEDS ORDERED: ARTIFICIAL TEARS OPHTHALMIC DROPS OU PRN (13:30)
[2024-01-02 14:32] LABS: CALCIUM 8.7 mg/dL (8.5-10.1)
[2024-01-02 14:36] LABS: CREATININE 1.2 mg/dL (0.55-1.3)
[2024-01-02] MEDS: NAPH,MB-DB/K PH,MBDB POWDER PACKET PO SCH (16:29)
[2024-01-03 06:39] LABS: CHLORIDE 107 mmol/L (98-107); POTASSIUM 3.9 mmol/L (3.5-5.1); SODIUM 137 mmol/L (136-145)
[2024-01-03 06:42] LABS: CALCIUM 8.1 mg/dL (8.5-10.1)
[2024-01-03 06:43] LABS: ALBUMIN 2.5 g/dl (3.4-5.0); ANION GAP 6 mmol/L (4-13); BASO % 0.3 % (0-2.0); BLOOD UREA NITROGEN 29.3 mg/dL (7-18); CO2 24 mmol/L (21-32); GLUCOSE,RANDOM 142 mg/dL (74-106); HEMOGLOBIN 11.5 GM/dL (10.7-15.3); LYMPH % 24.1 % (8-40); MAGNESIUM 2.1 mg/dL (1.8-2.4); MCH 26.7 pg (25.7-33.7); MCHC 32.8 g/dl (32.0-36.0); MEAN CELL VOLUME 81.4 fl (80-96); MEAN PLT VOLUME 7.8 fl (7.5-11.1); MONO % 7.5 % (3.8-10.2); NEUT % 66.1 % (42.8-82.8); PLATELET COUNT 294 10^3/uL (134-434); WHITE BLOOD COUNT 11.6 K/mm3 (4.0-10.0)
[2024-01-03 06:46] LABS: CREATININE 1.6 mg/dL (0.55-1.3); SGOT/AST 42 U/L (15-37); SGPT/ALT < 6 U/L (13-61)
[2024-01-03 06:48] LABS: BILIRUBIN,TOTAL 0.3 mg/dL (0.2-1); TOT PROT 5.3 g/dl (6.4-8.2)
[2024-01-03 06:49] LABS: ALK PHOS 77 U/L (45-117)
[2024-01-03] MEDS: PANTOPRAZOLE 40 MG TABLET PO SCH (09:28)
[2024-01-04] MEDS ORDERED: ARTIFICIAL TEARS OPHTHALMIC DROPS OU PRN (07:19)
[2024-01-04] MEDS ORDERED: hydrALAZINE HCL 20 MG/ML VIAL IVPB PRN (07:19)
[2024-01-04 09:01] LABS: BASO % 0.4 % (0-2.0); EOS % 2.4 % (0-4.5); HEMATOCRIT 37.1 % (32.4-45.2); HEMOGLOBIN 12.2 GM/dL (10.7-15.3); LYMPH % 28.5 % (8-40); MCH 26.9 pg (25.7-33.7); MCHC 32.8 g/dl (32.0-36.0); MEAN CELL VOLUME 81.9 fl (80-96); MEAN PLT VOLUME 7.7 fl (7.5-11.1); MONO % 8.5 % (3.8-10.2); NEUT % 60.2 % (42.8-82.8); PLATELET COUNT 291 10^3/uL (134-434); RBC 4.52 M/mm3 (3.60-5.2); RDW 13.3 % (11.6-15.6)
[2024-01-04 09:15] LABS: CHLORIDE 107 mmol/L (98-107); POTASSIUM 3.8 mmol/L (3.5-5.1); SODIUM 136 mmol/L (136-145)
[2024-01-04 09:22] LABS: ALBUMIN 2.6 g/dl (3.4-5.0); BLOOD UREA NITROGEN 21.4 mg/dL (7-18); GLUCOSE,RANDOM 112 mg/dL (74-106)
[2024-01-04 09:23] LABS: ANION GAP 7 mmol/L (4-13); CO2 22 mmol/L (21-32); MAGNESIUM 1.8 mg/dL (1.8-2.4)
[2024-01-04 09:25] LABS: CREATININE 1.3 mg/dL (0.55-1.3); SGOT/AST 43 U/L (15-37); SGPT/ALT < 6 U/L (13-61)
[2024-01-04] MEDS: PANTOPRAZOLE 40 MG TABLET PO SCH (09:25)
[2024-01-04 09:26] LABS: PHOSPHOROUS 3.4 mg/dL (2.5-4.9)
[2024-01-04 09:27] LABS: BILIRUBIN,TOTAL 0.3 mg/dL (0.2-1); TOT PROT 5.7 g/dl (6.4-8.2)
[2024-01-04 09:28] LABS: ALK PHOS 81 U/L (45-117)
[2024-01-04] MEDS: INSULIN ASPART SLIDING SCALE (NOVOLOG) 1 VIAL SQ SCH (11:05)
[2024-01-04] MEDS: HEPARIN NA (PORCINE) 5,000 UNITS/ML 1ML VIAL SQ SCH (13:44)
[2024-01-04] MEDS: INSULIN (LEVEMIR) 100 UNITS/ML UNITS SQ SCH (21:18)
[2024-01-05 08:59] LABS: BASO % 0.9 % (0-2.0); EOS % 2.5 % (0-4.5); HEMATOCRIT 35.4 % (32.4-45.2); HEMOGLOBIN 11.8 GM/dL (10.7-15.3); MCH 27.1 pg (25.7-33.7); MCHC 33.5 g/dl (32.0-36.0); MEAN CELL VOLUME 80.8 fl (80-96); MEAN PLT VOLUME 7.6 fl (7.5-11.1); MONO % 8.6 % (3.8-10.2); PLATELET COUNT 276 10^3/uL (134-434); RBC 4.38 M/mm3 (3.60-5.2); RDW 13.5 % (11.6-15.6); WHITE BLOOD COUNT 10.4 K/mm3 (4.0-10.0)
[2024-01-05 09:13] LABS: CHLORIDE 108 mmol/L (98-107); POTASSIUM 4.1 mmol/L (3.5-5.1); SODIUM 137 mmol/L (136-145)
[2024-01-05 09:15] LABS: CALCIUM 8.1 mg/dL (8.5-10.1)
[2024-01-05 09:16] LABS: ALBUMIN 2.6 g/dl (3.4-5.0); ANION GAP 7 mmol/L (4-13); BLOOD UREA NITROGEN 22.3 mg/dL (7-18); CO2 23 mmol/L (21-32); GLUCOSE,RANDOM 154 mg/dL (74-106); MAGNESIUM 1.8 mg/dL (1.8-2.4)
[2024-01-05 09:19] LABS: CREATININE 1.3 mg/dL (0.55-1.3); SGOT/AST 61 U/L (15-37); SGPT/ALT < 6 U/L (13-61)
[2024-01-05 09:20] LABS: BILIRUBIN,TOTAL 0.4 mg/dL (0.2-1)
[2024-01-05 09:21] LABS: TOT PROT 5.7 g/dl (6.4-8.2)
[2024-01-05 09:22] LABS: ALK PHOS 101 U/L (45-117)
[2024-01-05] MEDS: LIDOCAINE 5% TOPICAL PATCH TP SCH (11:10)
[2024-01-05] MEDS: ATORVASTATIN CA 40 MG TABLET (FP) PO SCH (21:55)
[2024-01-05] MEDS: hydrALAZINE HCL 50 MG TABLET (FP) PO SCH (21:55)
[2024-01-05] MEDS: LIDOCAINE PATCH REMOVAL MC SCH (22:33)
[2024-01-06 09:28] LABS: CHLORIDE 108 mmol/L (98-107); POTASSIUM 4.3 mmol/L (3.5-5.1); SODIUM 136 mmol/L (136-145)
[2024-01-06 09:36] LABS: ALBUMIN 2.7 g/dl (3.4-5.0); ANION GAP 6 mmol/L (4-13); BLOOD UREA NITROGEN 21.5 mg/dL (7-18); CALCIUM 8.5 mg/dL (8.5-10.1); CO2 23 mmol/L (21-32)
[2024-01-06 09:37] LABS: GLUCOSE,RANDOM 166 mg/dL (74-106)
[2024-01-06 09:39] LABS: SGOT/AST 32 U/L (15-37); SGPT/ALT < 6 U/L (13-61)
[2024-01-06 09:40] LABS: CREATININE 1.4 mg/dL (0.55-1.3)
[2024-01-06 09:41] LABS: BILIRUBIN,TOTAL 0.5 mg/dL (0.2-1); TOT PROT 5.7 g/dl (6.4-8.2)
[2024-01-06 09:42] LABS: ALK PHOS 97 U/L (45-117)
[2024-01-06] MEDS: ASPIRIN COATED 81 MG TABLET.EC PO SCH (09:42)
[2024-01-06 11:51] LABS: CHOLESTEROL 208 mg/dL (50-200); HDL CHOLESTEROL 61 mg/dL (40-60); LDL CHOLESTEROL (ONLY DFH) 128 mg/dL (5-100)
[2024-01-06] MEDS: INSULIN (LEVEMIR) 100 UNITS/ML UNITS SQ SCH (22:22)
[2024-01-08] MEDS: INSULIN (LEVEMIR) 100 UNITS/ML UNITS SQ SCH (22:03)
[2024-01-08] MEDS: INSULIN ASPART SLIDING SCALE (NOVOLOG) 1 VIAL SQ SCH (22:05)
[2024-01-09 07:36] LABS: CHLORIDE 109 mmol/L (98-107); POTASSIUM 4.8 mmol/L (3.5-5.1); SODIUM 138 mmol/L (136-145)
[2024-01-09 07:43] LABS: ALBUMIN 2.5 g/dl (3.4-5.0); ANION GAP 6 mmol/L (4-13); BLOOD UREA NITROGEN 35.2 mg/dL (7-18); CALCIUM 8.5 mg/dL (8.5-10.1); CO2 22 mmol/L (21-32)
[2024-01-09 07:44] LABS: GLUCOSE,RANDOM 179 mg/dL (74-106)
[2024-01-09 07:46] LABS: CREATININE 1.5 mg/dL (0.55-1.3)
[2024-01-09 07:47] LABS: SGOT/AST 19 U/L (15-37)
[2024-01-09 07:48] LABS: BILIRUBIN,TOTAL 0.4 mg/dL (0.2-1); TOT PROT 5.4 g/dl (6.4-8.2)
[2024-01-09 07:49] LABS: ALK PHOS 107 U/L (45-117)
[2024-01-09 07:50] LABS: SGPT/ALT < 6 U/L (13-61)
[2024-01-09 14:08] VITALS: RESP 18
[2024-01-10 13:19] VITALS: BP 137/65; PULSE 98; TEMP 98.8
== END 2024-01-10 17:40 | DRG 638 ==
LOC: JER 10:48 → JERBED 15:22 → JICU 17:19 → J6S 01-03 21:39
PROVIDERS: ADMIT Internal Medicine Pulmonary Disease; ATTEND Internal Medicine
DX: E11.00 Type 2 diabetes mellitus with hyperosmolarity without nonketotic hyperglycemic-hyperosmolar coma (NKHHC) (principal); E87.20 Acidosis, unspecified; R56.9 Unspecified convulsions; E78.5 Hyperlipidemia, unspecified; I12.9 Hypertensive chronic kidney disease with stage 1 through stage 4 chronic kidney disease, or unspecified chronic kidney disease; E87.5 Hyperkalemia; N18.9 Chronic kidney disease, unspecified; R55 Syncope and collapse; R79.89 Other specified abnormal findings of blood chemistry; E86.0 Dehydration
CPT/HCPCS: 0241U-QW; 36415; 70450-TC; 70496-TC; 70498-TC; 71045-TC-FY; 72170-TC-FY; 80048; 80053; 80061; 80307; 81003; 82010; 82140; 82550; 82553; 82803; 82962; 83036; 83605; 83735; 83880; 83930; 84100; 84443; 84484; 85025; 85610; 85730; 86850; 86900; 86901; 87040; 87086; 87635; 93005; 93010; 93306-TC; 97116-GP; 97162-GP; 99285-25; J1644; J3480

== ENCOUNTER 2024-03-04 23:52 | Inpatient (IN) | payer OTHER ==
[2024-03-05] MEDS: LACTATED RINGERS SOLUTION 1000 ML INFUS.BAG IV ONE ×5 (00:58→13:50)
[2024-03-05 01:01] LABS: BASO % 0.5 % (0-2.0); EOS % 0.6 % (0-4.5); HEMATOCRIT 42.8 % (32.4-45.2); HEMOGLOBIN 14.1 GM/dL (10.7-15.3); LYMPH % 7.7 % (8-40); MCH 27.4 pg (25.7-33.7); MCHC 32.9 g/dl (32.0-36.0); MEAN CELL VOLUME 83.1 fl (80-96); MEAN PLT VOLUME 9.2 fl (7.5-11.1); MONO % 3.4 % (3.8-10.2); NEUT % 87.8 % (42.8-82.8); PLATELET COUNT 299 10^3/uL (134-434); RBC 5.14 M/mm3 (3.60-5.2); RDW 13.1 % (11.6-15.6); VENOUS BASE EXCESS -5.2 mmol/L (-2-2); VENOUS O2 SATURATION 26.3 % (70-80); VENOUS PCO2 54.5 mmHg (38-52); VENOUS PH 7.233 (7.310-7.410); WHITE BLOOD COUNT 8.8 K/mm3 (4.0-10.0)
[2024-03-05 01:14] LABS: CHLORIDE 93 mmol/L (98-107); SODIUM 126 mmol/L (136-145)
[2024-03-05 01:16] LABS: CALCIUM 9.3 mg/dL (8.5-10.1)
[2024-03-05 01:17] LABS: BLOOD UREA NITROGEN 27.9 mg/dL (7-18); CO2 21 mmol/L (21-32)
[2024-03-05 01:20] LABS: CREATININE 1.8 mg/dL (0.55-1.3); SGOT/AST 55 U/L (15-37); SGPT/ALT 6 U/L (13-61)
[2024-03-05 01:21] LABS: BILIRUBIN,TOTAL 0.5 mg/dL (0.2-1); PHOSPHOROUS 3.9 mg/dL (2.5-4.9)
[2024-03-05 01:22] LABS: TOT PROT 8.6 g/dl (6.4-8.2)
[2024-03-05 01:23] LABS: ALK PHOS 154 U/L (45-117)
[2024-03-05 01:33] LABS: INR 0.91 (0.83-1.09); PROTHROMBIN TIME (PATIENT) 10.5 SEC (9.7-13.0)
[2024-03-05 01:41] LABS: LACTIC ACID 5.9 mmol/L (0.4-2.0)
[2024-03-05 01:59] LABS: ANION GAP 12 mmol/L (4-13); GLUCOSE,RANDOM 664 mg/dL (74-106); POTASSIUM 6.2 mmol/L (3.5-5.1)
[2024-03-05] MEDS ORDERED: levETIRAcetam 500 MG/5 ML INJECTION VIAL IVPB ONE (02:15)
[2024-03-05] MEDS: levETIRAcetam 500 MG/5 ML INJECTION VIAL IVPB ONE (02:24)
[2024-03-05] MEDS ORDERED: ROCURONIUM BROMIDE 50 MG/5 ML SYRINGE ONE ×2 (02:57→02:59)
[2024-03-05] MEDS ORDERED: KETAMINE HCL 200 MG/20 ML VIAL ONE (02:57)
[2024-03-05] MEDS ORDERED: PROPOFOL 20 ML ONE (02:58)
[2024-03-05] MEDS ORDERED: INSULIN REGULAR 100 UNITS in SODIUM CHLORIDE 99 ML IVPB SCH (03:00)
[2024-03-05 03:21] LABS: CHLORIDE 98 mmol/L (98-107); POTASSIUM 4.3 mmol/L (3.5-5.1); SODIUM 131 mmol/L (136-145)
[2024-03-05 03:23] LABS: ANION GAP 8 mmol/L (4-13); BLOOD UREA NITROGEN 23.5 mg/dL (7-18); CALCIUM 8.5 mg/dL (8.5-10.1); CO2 24 mmol/L (21-32)
[2024-03-05 03:27] LABS: CREATININE 1.4 mg/dL (0.55-1.3)
[2024-03-05] MEDS ORDERED: PROPOFOL 1,000,000 MCG/100 ML VIAL ONE (03:28)
[2024-03-05] MEDS: PROPOFOL 1,000,000 MCG/100 ML VIAL IVPB SCH (03:30)
[2024-03-05 03:36] LABS: GLUCOSE,RANDOM 574 mg/dL (74-106)
[2024-03-05 04:14] LABS: VENOUS BASE EXCESS -3.7 mmol/L (-2-2); VENOUS O2 SATURATION 73.2 % (70-80); VENOUS PCO2 52.2 mmHg (38-52); VENOUS PH 7.273 (7.310-7.410)
[2024-03-05 04:34] LABS: CHLORIDE 99 mmol/L (98-107); SODIUM 133 mmol/L (136-145)
[2024-03-05 04:36] LABS: ANION GAP 9 mmol/L (4-13); BLOOD UREA NITROGEN 25.9 mg/dL (7-18); CALCIUM 8.4 mg/dL (8.5-10.1); CO2 25 mmol/L (21-32)
[2024-03-05 04:39] LABS: SGOT/AST 28 U/L (15-37); SGPT/ALT 7 U/L (13-61)
[2024-03-05 04:40] LABS: CREATININE 1.3 mg/dL (0.55-1.3)
[2024-03-05 04:41] LABS: BILIRUBIN,TOTAL 0.3 mg/dL (0.2-1)
[2024-03-05 04:54] LABS: ALK PHOS 107 U/L (45-117); GLUCOSE,RANDOM 573 mg/dL (74-106); TOT PROT 5.9 g/dl (6.4-8.2)
[2024-03-05] MEDS: KCL 10 MEQ IVPB 10 MEQ/100 ML INFUS.BAG IVPB SCH (05:11)
[2024-03-05 05:30] LABS: EPI CELLS 2 /uL (0-25.1); HYALINE CASTS 0 /uL (0-3.1); PH,URINE 7.5 (5.0-8.0); URINE APPEARANCE CLEAR; URINE BACTERIA >9,000 /uL (0-1359); URINE BILIRUBIN NEGATIVE (NEGATIVE); URINE COLOR YELLOW; URINE GLUCOSE (UA) 3+ (NEGATIVE); URINE KETONE NEGATIVE (NEGATIVE); URINE LEUK ESTERASE NEGATIVE (NEGATIVE); URINE NITRITE NEGATIVE (NEGATIVE); URINE PROTEIN 2+ (NEGATIVE); URINE RBC 21 /uL (0-23.9); URINE UROBILINOGEN 0.2 mg/dL (0.2-1.0); URINE WBC 24 /uL (0-25.8)
[2024-03-05] MEDS: INSULIN REGULAR 100 UNITS in SODIUM CHLORIDE 99 ML IVPB SCH (06:30)
[2024-03-05] MEDS: PIPERACILLIN/TAZOB 2.25 GM 2.25 GM in DEXTROSE 5%-WATER - 50 ML IVPB ONE (06:37)
[2024-03-05] MEDS: SODIUM CHLORIDE IVPB ONE (08:00)
[2024-03-05] MEDS: DESMOPRESSIN ACETATE IVPB ONE (08:00)
[2024-03-05] MEDS: MUPIROCIN 2% TOPICAL OINTMENT FOR DECOLONIZATION NS SCH (09:51)
[2024-03-05] MEDS: PANTOPRAZOLE SODIUM 40 MG VIAL IVPUSH SCH (09:51)
[2024-03-05] MEDS: levETIRAcetam 500 MG/5 ML INJECTION VIAL IVPB SCH (09:51)
[2024-03-05] MEDS: SODIUM CHLORIDE 0.9%/KCL 20 MEQ/1,000 ML INFUS.BAG IV SCH (10:59)
[2024-03-05] MEDS: DESMOPRESSIN ACETATE IVPB SCH (10:59)
[2024-03-05] MEDS: SODIUM CHLORIDE IVPB SCH (10:59)
[2024-03-05 11:46] LABS: ARTERIAL BLD GAS O2 SATURATION 98.4 % (95-98); ARTERIAL BLOOD GAS BASE EXCESS -5.6 mmol/L (-2-2); ARTERIAL BLOOD GAS PO2 122.9 mmHg (80-100); ARTERIAL BLOOD GAS pH 7.375 (7.350-7.450)
[2024-03-05 11:46] LABS: BASO % 0.1 % (0-2.0); EOS % 0.1 % (0-4.5); HEMATOCRIT 29.4 % (32.4-45.2); HEMOGLOBIN 9.6 GM/dL (10.7-15.3); LYMPH % 7.1 % (8-40); MCH 26.5 pg (25.7-33.7); MCHC 32.5 g/dl (32.0-36.0); MEAN CELL VOLUME 81.6 fl (80-96); MEAN PLT VOLUME 7.3 fl (7.5-11.1); MONO % 5.4 % (3.8-10.2); NEUT % 87.3 % (42.8-82.8); PLATELET COUNT 229 10^3/uL (134-434); RDW 13.1 % (11.6-15.6); WHITE BLOOD COUNT 10.3 K/mm3 (4.0-10.0)
[2024-03-05 11:49] LABS: ALLENS TEST POSITIVE; VENT MODE AC; VENT RATE 20
[2024-03-05 12:13] LABS: CHLORIDE 106 mmol/L (98-107); POTASSIUM 3.6 mmol/L (3.5-5.1); SODIUM 139 mmol/L (136-145)
[2024-03-05 12:15] LABS: ALBUMIN 2.5 g/dl (3.4-5.0); CALCIUM 7.9 mg/dL (8.5-10.1)
[2024-03-05 12:16] LABS: ANION GAP 9 mmol/L (4-13); CO2 23 mmol/L (21-32); GLUCOSE,RANDOM 178 mg/dL (74-106); MAGNESIUM 1.5 mg/dL (1.8-2.4)
[2024-03-05 12:19] LABS: CREATININE 1.3 mg/dL (0.55-1.3); PHOSPHOROUS 3.2 mg/dL (2.5-4.9); SGOT/AST 17 U/L (15-37)
[2024-03-05 12:20] LABS: BILIRUBIN,TOTAL 0.4 mg/dL (0.2-1); SGPT/ALT < 6 U/L (13-61); TOT PROT 4.9 g/dl (6.4-8.2)
[2024-03-05 12:21] LABS: ALK PHOS 85 U/L (45-117)
[2024-03-05] MEDS: MAGNESIUM SULFATE IN WATER 2 GM/50 ML IVPB IVPB ONE (12:40)
[2024-03-05] MEDS: KCL 20 MEQ PREMIX BAG 20 MEQ/100 ML INFUS.BAG IVPB SCH (13:45)
[2024-03-05] MEDS: PIPERACILLIN/TAZOB 2.25 GM 2.25 GM/50 ML BAG IVPB SCH (13:45)
[2024-03-05] MEDS: DEXTROSE 5%-0.45% SALINE 1,000 ML IV SCH (14:46)
[2024-03-05] MEDS: PIPERACILLIN/TAZOB 3.375 GM 50 ML IVPB SCH (18:28)
[2024-03-05] MEDS: INSULIN (LEVEMIR) 100 UNITS/ML UNITS SQ SCH (21:35)
[2024-03-05] MEDS: CHLORHEXIDINE GLUCONATE 4% CLEANSER FOR DECOLONIZATION TP SCH (21:35)
[2024-03-05] MEDS: DEXTROSE 5%-0.2% SALINE - 1,000 ML IV SCH (21:36)
[2024-03-05] MEDS ORDERED: INSULIN (LEVEMIR) 100 UNITS/ML UNITS SQ SCH (22:00)
[2024-03-05] MEDS: SODIUM CHLORIDE 0.45% 1,000 ML IV SCH (22:42)
[2024-03-06 07:13] LABS: BASO % 0.3 % (0-2.0); EOS % 1.3 % (0-4.5); HEMATOCRIT 29.5 % (32.4-45.2); HEMOGLOBIN 9.6 GM/dL (10.7-15.3); LYMPH % 9.4 % (8-40); MCH 26.8 pg (25.7-33.7); MCHC 32.5 g/dl (32.0-36.0); MEAN CELL VOLUME 82.6 fl (80-96); MEAN PLT VOLUME 7.9 fl (7.5-11.1); MONO % 6.7 % (3.8-10.2); NEUT % 82.3 % (42.8-82.8); PLATELET COUNT 238 10^3/uL (134-434); RBC 3.57 M/mm3 (3.60-5.2); WHITE BLOOD COUNT 12.1 K/mm3 (4.0-10.0)
[2024-03-06 07:19] LABS: INR 1.05 (0.83-1.09); PROTHROMBIN TIME (PATIENT) 11.8 SEC (9.7-13.0)
[2024-03-06 07:21] LABS: ACTIVATED PTT 31.7 SECONDS (25.2-36.5)
[2024-03-06 07:28] LABS: CHLORIDE 104 mmol/L (98-107); POTASSIUM 4.5 mmol/L (3.5-5.1); SODIUM 136 mmol/L (136-145)
[2024-03-06 07:33] LABS: ALBUMIN 2.5 g/dl (3.4-5.0); ANION GAP 8 mmol/L (4-13); BLOOD UREA NITROGEN 22.1 mg/dL (7-18); CALCIUM 8.1 mg/dL (8.5-10.1); CO2 25 mmol/L (21-32); GLUCOSE,RANDOM 218 mg/dL (74-106); MAGNESIUM 2.1 mg/dL (1.8-2.4)
[2024-03-06 07:36] LABS: CREATININE 1.4 mg/dL (0.55-1.3); SGOT/AST 19 U/L (15-37); SGPT/ALT < 6 U/L (13-61)
[2024-03-06 07:37] LABS: BILIRUBIN,TOTAL 0.4 mg/dL (0.2-1); PHOSPHOROUS 3.2 mg/dL (2.5-4.9); TOT PROT 5.1 g/dl (6.4-8.2)
[2024-03-06 07:38] LABS: ALK PHOS 83 U/L (45-117)
[2024-03-06 08:10] LABS: IRON SERUM 29 ug/dL (50-175); TOTAL IRON BINDING CAPACITY 237 ug/dL (250-450)
[2024-03-06 09:00] LABS: RETICULOCYTES 2.21 % (0.5-1.5)
[2024-03-06] MEDS ORDERED: INSULIN REGULAR HUMAN 100 UNITS/ML *VIAL ONE (12:51)
[2024-03-06] MEDS: amLODIPine BESYLATE 5 MG TABLET (FP) PO ONE (12:53)
[2024-03-06] MEDS: INSULIN ASPART SLIDING SCALE (NOVOLOG) 1 VIAL SQ SCH (15:42)
[2024-03-06 15:58] VITALS: BMI 28.3
[2024-03-06] MEDS ORDERED: hydrALAZINE HCL 20 MG/ML VIAL IVPUSH PRN (16:34)
[2024-03-06] MEDS ORDERED: hydrALAZINE HCL 20 MG/ML VIAL IVPUSH SCH (22:00)
[2024-03-07 07:14] LABS: BASO % 0.2 % (0-2.0); EOS % 0.8 % (0-4.5); HEMATOCRIT 29.2 % (32.4-45.2); HEMOGLOBIN 9.5 GM/dL (10.7-15.3); LYMPH % 10.5 % (8-40); MCH 26.8 pg (25.7-33.7); MCHC 32.4 g/dl (32.0-36.0); MEAN CELL VOLUME 82.6 fl (80-96); MEAN PLT VOLUME 7.7 fl (7.5-11.1); MONO % 9.3 % (3.8-10.2); NEUT % 79.2 % (42.8-82.8); PLATELET COUNT 246 10^3/uL (134-434); RBC 3.53 M/mm3 (3.60-5.2); RDW 13.4 % (11.6-15.6); WHITE BLOOD COUNT 11.2 K/mm3 (4.0-10.0)
[2024-03-07 07:34] LABS: CHLORIDE 104 mmol/L (98-107); POTASSIUM 3.8 mmol/L (3.5-5.1); SODIUM 135 mmol/L (136-145)
[2024-03-07 07:40] LABS: ALBUMIN 2.3 g/dl (3.4-5.0)
[2024-03-07 07:41] LABS: ANION GAP 7 mmol/L (4-13); BLOOD UREA NITROGEN 19.8 mg/dL (7-18); CO2 25 mmol/L (21-32); GLUCOSE,RANDOM 127 mg/dL (74-106)
[2024-03-07 07:42] LABS: CALCIUM 7.7 mg/dL (8.5-10.1); SGOT/AST 25 U/L (15-37); SGPT/ALT < 6 U/L (13-61)
[2024-03-07 07:43] LABS: CREATININE 1.4 mg/dL (0.55-1.3); MAGNESIUM 1.9 mg/dL (1.8-2.4)
[2024-03-07 07:44] LABS: BILIRUBIN,TOTAL 0.5 mg/dL (0.2-1)
[2024-03-07 07:45] LABS: ALK PHOS 80 U/L (45-117)
[2024-03-07] MEDS: CEFTRIAXONE 1 G/50 ML PREMIX 50 ML IVPB SCH (17:27)
[2024-03-07] MEDS ORDERED: ACETAMINOPHEN 1000 MG/100 ML BAG IVPB PRN (21:47)
[2024-03-08 06:33] LABS: BASO % 0.1 % (0-2.0); EOS % 0.6 % (0-4.5); HEMATOCRIT 29.9 % (32.4-45.2); HEMOGLOBIN 9.5 GM/dL (10.7-15.3); LYMPH % 10.5 % (8-40); MCH 26.5 pg (25.7-33.7); MCHC 31.7 g/dl (32.0-36.0); MEAN CELL VOLUME 83.6 fl (80-96); MEAN PLT VOLUME 7.7 fl (7.5-11.1); MONO % 9.5 % (3.8-10.2); NEUT % 79.3 % (42.8-82.8); PLATELET COUNT 242 10^3/uL (134-434); RBC 3.58 M/mm3 (3.60-5.2); RDW 13.1 % (11.6-15.6); WHITE BLOOD COUNT 13.5 K/mm3 (4.0-10.0)
[2024-03-08 07:04] LABS: CHLORIDE 106 mmol/L (98-107); POTASSIUM 3.5 mmol/L (3.5-5.1); SODIUM 138 mmol/L (136-145)
[2024-03-08 07:11] LABS: ALBUMIN 2.3 g/dl (3.4-5.0); ANION GAP 7 mmol/L (4-13); CALCIUM 7.9 mg/dL (8.5-10.1); CO2 25 mmol/L (21-32)
[2024-03-08 07:12] LABS: BLOOD UREA NITROGEN 17.6 mg/dL (7-18); GLUCOSE,RANDOM 71 mg/dL (74-106); MAGNESIUM 1.7 mg/dL (1.8-2.4); SGOT/AST 22 U/L (15-37); SGPT/ALT < 6 U/L (13-61)
[2024-03-08 07:13] LABS: BILIRUBIN,TOTAL 0.5 mg/dL (0.2-1)
[2024-03-08 07:14] LABS: TOT PROT 5.1 g/dl (6.4-8.2)
[2024-03-08 07:15] LABS: ALK PHOS 94 U/L (45-117); CREATININE 1.3 mg/dL (0.55-1.3)
[2024-03-08] MEDS: MAGNESIUM 2GM/50ML STERILE WATER IVPB IVPB ONE (08:36)
[2024-03-08] MEDS: MAGNESIUM OXIDE 400 MG TABLET (FP) PO ONE (13:46)
[2024-03-08] MEDS: INSULIN ASPART SLIDING SCALE (NOVOLOG) 1 VIAL SQ SCH (16:23)
[2024-03-08] MEDS: levETIRAcetam 500 MG TABLET (FP) PO SCH (21:39)
[2024-03-08] MEDS: ATORVASTATIN CA 40 MG TABLET (FP) PO SCH (21:39)
[2024-03-08] MEDS: hydrALAZINE HCL 50 MG TABLET (FP) PO SCH (21:39)
[2024-03-09 07:06] LABS: BASO % 0.4 % (0-2.0); EOS % 2.5 % (0-4.5); HEMATOCRIT 26.8 % (32.4-45.2); HEMOGLOBIN 8.6 GM/dL (10.7-15.3); LYMPH % 11.3 % (8-40); MCHC 32.2 g/dl (32.0-36.0); MEAN CELL VOLUME 83.9 fl (80-96); MEAN PLT VOLUME 7.7 fl (7.5-11.1); MONO % 10.3 % (3.8-10.2); NEUT % 75.5 % (42.8-82.8); PLATELET COUNT 213 10^3/uL (134-434); RBC 3.19 M/mm3 (3.60-5.2); RDW 12.9 % (11.6-15.6); WHITE BLOOD COUNT 11.6 K/mm3 (4.0-10.0)
[2024-03-09 07:26] LABS: CHLORIDE 103 mmol/L (98-107); POTASSIUM 3.4 mmol/L (3.5-5.1); SODIUM 134 mmol/L (136-145)
[2024-03-09 07:39] LABS: CALCIUM 7.5 mg/dL (8.5-10.1)
[2024-03-09 07:40] LABS: BLOOD UREA NITROGEN 22.6 mg/dL (7-18); GLUCOSE,RANDOM 168 mg/dL (74-106)
[2024-03-09 07:43] LABS: ANION GAP 7 mmol/L (4-13); CO2 23 mmol/L (21-32); CREATININE 1.3 mg/dL (0.55-1.3); SGPT/ALT < 6 U/L (13-61)
[2024-03-09 07:44] LABS: BILIRUBIN,TOTAL 0.3 mg/dL (0.2-1); TOT PROT 4.7 g/dl (6.4-8.2)
[2024-03-09 07:45] LABS: ALK PHOS 114 U/L (45-117)
[2024-03-09 07:48] LABS: PHOSPHOROUS 2.7 mg/dL (2.5-4.9); SGOT/AST 22 U/L (15-37)
[2024-03-09] MEDS: POTASSIUM CHLORIDE ORAL LIQUID 20 MEQ/15 ML PO ONE (09:55)
[2024-03-09] MEDS: INSULIN ASPART SLIDING SCALE (NOVOLOG) 1 VIAL SQ SCH (11:42)
[2024-03-10] MEDS: INSULIN (NOVOLOG) ASPART 100 UNITS/ML 10ML VIAL SQ ONE (01:51)
[2024-03-10 08:36] LABS: BASO % 0.4 % (0-2.0); EOS % 1.9 % (0-4.5); HEMATOCRIT 29.7 % (32.4-45.2); HEMOGLOBIN 9.6 GM/dL (10.7-15.3); LYMPH % 10.4 % (8-40); MCHC 32.3 g/dl (32.0-36.0); MEAN CELL VOLUME 83.4 fl (80-96); MEAN PLT VOLUME 7.8 fl (7.5-11.1); MONO % 11.3 % (3.8-10.2); PLATELET COUNT 272 10^3/uL (134-434); RBC 3.56 M/mm3 (3.60-5.2); RDW 13.1 % (11.6-15.6); WHITE BLOOD COUNT 10.3 K/mm3 (4.0-10.0)
[2024-03-10 08:45] LABS: CHLORIDE 109 mmol/L (98-107); POTASSIUM 4.9 mmol/L (3.5-5.1); SODIUM 138 mmol/L (136-145)
[2024-03-10 08:48] LABS: CALCIUM 8.2 mg/dL (8.5-10.1)
[2024-03-10 08:49] LABS: ALBUMIN 2.2 g/dl (3.4-5.0); ANION GAP 7 mmol/L (4-13); BLOOD UREA NITROGEN 31.8 mg/dL (7-18); CO2 23 mmol/L (21-32); GLUCOSE,RANDOM 343 mg/dL (74-106); MAGNESIUM 2.2 mg/dL (1.8-2.4)
[2024-03-10 08:52] LABS: CREATININE 1.8 mg/dL (0.55-1.3); PHOSPHOROUS 2.6 mg/dL (2.5-4.9); SGOT/AST 22 U/L (15-37); SGPT/ALT < 6 U/L (13-61)
[2024-03-10 08:53] LABS: BILIRUBIN,TOTAL 0.2 mg/dL (0.2-1); TOT PROT 5.4 g/dl (6.4-8.2)
[2024-03-10 09:16] LABS: ALK PHOS 167 U/L (45-117)
[2024-03-10] MEDS ORDERED: INSULIN (LEVEMIR) 100 UNITS/ML UNITS SQ SCH ×2 (09:27→22:00)
[2024-03-10] MEDS: INSULIN (LEVEMIR) 100 UNITS/ML UNITS SQ ONE (12:13)
[2024-03-10] MEDS: INSULIN ASPART SLIDING SCALE (NOVOLOG) 1 VIAL SQ SCH (17:31)
[2024-03-10] MEDS: SODIUM CHLORIDE 0.45% 1,000 ML IV SCH (17:31)
[2024-03-10] MEDS: INSULIN (NOVOLOG) ASPART 100 UNITS/ML 10ML VIAL SQ SCH (17:31)
[2024-03-10 18:09] VITALS: RESP 18
[2024-03-10] MEDS: ATORVASTATIN CA 40 MG TABLET (FP) PO SCH (21:30)
[2024-03-10] MEDS: levETIRAcetam 500 MG TABLET (FP) PO SCH (21:30)
[2024-03-10] MEDS: hydrALAZINE HCL 50 MG TABLET (FP) PO SCH (21:31)
[2024-03-10] MEDS: INSULIN (LEVEMIR) 100 UNITS/ML UNITS SQ SCH (21:33)
[2024-03-10] MEDS ORDERED: CHLORHEXIDINE GLUCONATE 4% CLEANSER FOR DECOLONIZATION TP SCH (22:00)
[2024-03-11 09:02] LABS: BASO % 0.4 % (0-2.0); EOS % 3.1 % (0-4.5); HEMATOCRIT 30.2 % (32.4-45.2); HEMOGLOBIN 9.6 GM/dL (10.7-15.3); MCH 26.7 pg (25.7-33.7); MCHC 31.9 g/dl (32.0-36.0); MEAN CELL VOLUME 83.6 fl (80-96); MEAN PLT VOLUME 7.3 fl (7.5-11.1); MONO % 7.6 % (3.8-10.2); NEUT % 73.9 % (42.8-82.8); PLATELET COUNT 291 10^3/uL (134-434); RBC 3.61 M/mm3 (3.60-5.2); WHITE BLOOD COUNT 8.7 K/mm3 (4.0-10.0)
[2024-03-11 09:15] LABS: CHLORIDE 112 mmol/L (98-107); POTASSIUM 4.2 mmol/L (3.5-5.1); SODIUM 143 mmol/L (136-145)
[2024-03-11 09:21] LABS: CALCIUM 8.6 mg/dL (8.5-10.1)
[2024-03-11 09:22] LABS: ALBUMIN 2.4 g/dl (3.4-5.0); ANION GAP 7 mmol/L (4-13); BLOOD UREA NITROGEN 23.2 mg/dL (7-18); CO2 24 mmol/L (21-32); GLUCOSE,RANDOM 272 mg/dL (74-106); MAGNESIUM 1.9 mg/dL (1.8-2.4)
[2024-03-11 09:25] LABS: CREATININE 1.4 mg/dL (0.55-1.3); PHOSPHOROUS 3.6 mg/dL (2.5-4.9); SGOT/AST 22 U/L (15-37)
[2024-03-11 09:26] LABS: BILIRUBIN,TOTAL 0.3 mg/dL (0.2-1); TOT PROT 5.5 g/dl (6.4-8.2)
[2024-03-11 09:28] LABS: ALK PHOS 159 U/L (45-117)
[2024-03-11 09:29] LABS: SGPT/ALT < 6 U/L (13-61)
[2024-03-11] MEDS: CEFTRIAXONE 1 G/50 ML PREMIX 50 ML IVPB SCH (10:25)
[2024-03-11] MEDS: PANTOPRAZOLE SODIUM 40 MG VIAL IVPUSH SCH (10:25)
[2024-03-11] MEDS: hydrALAZINE HCL 25 MG TABLET (FP) PO SCH (23:00)
[2024-03-12 09:47] LABS: BASO % 0.4 % (0-2.0); EOS % 3.3 % (0-4.5); HEMATOCRIT 32.4 % (32.4-45.2); HEMOGLOBIN 10.5 GM/dL (10.7-15.3); LYMPH % 19.6 % (8-40); MCH 26.9 pg (25.7-33.7); MCHC 32.4 g/dl (32.0-36.0); MEAN PLT VOLUME 7.7 fl (7.5-11.1); MONO % 7.1 % (3.8-10.2); NEUT % 69.6 % (42.8-82.8); PLATELET COUNT 317 10^3/uL (134-434); RBC 3.91 M/mm3 (3.60-5.2); RDW 13.1 % (11.6-15.6); WHITE BLOOD COUNT 8.4 K/mm3 (4.0-10.0)
[2024-03-12 10:00] LABS: CHLORIDE 108 mmol/L (98-107); POTASSIUM 4.1 mmol/L (3.5-5.1); SODIUM 141 mmol/L (136-145)
[2024-03-12 10:02] LABS: CALCIUM 8.6 mg/dL (8.5-10.1)
[2024-03-12 10:03] LABS: ANION GAP 8 mmol/L (4-13); BLOOD UREA NITROGEN 19.5 mg/dL (7-18); CO2 24 mmol/L (21-32); GLUCOSE,RANDOM 162 mg/dL (74-106)
[2024-03-12 10:04] LABS: ALBUMIN 2.4 g/dl (3.4-5.0)
[2024-03-12 10:06] LABS: PHOSPHOROUS 3.3 mg/dL (2.5-4.9); SGOT/AST 18 U/L (15-37); SGPT/ALT < 6 U/L (13-61)
[2024-03-12 10:07] LABS: CREATININE 1.3 mg/dL (0.55-1.3)
[2024-03-12 10:08] LABS: BILIRUBIN,TOTAL 0.3 mg/dL (0.2-1); TOT PROT 5.6 g/dl (6.4-8.2)
[2024-03-12 10:09] LABS: ALK PHOS 156 U/L (45-117)
[2024-03-12 10:10] LABS: MAGNESIUM 1.7 mg/dL (1.8-2.4)
[2024-03-12] MEDS: MAGNESIUM OXIDE 400 MG TABLET (FP) PO ONE (16:14)
[2024-03-13 09:48] LABS: CHLORIDE 105 mmol/L (98-107); POTASSIUM 4.5 mmol/L (3.5-5.1); SODIUM 137 mmol/L (136-145)
[2024-03-13 09:52] LABS: ALBUMIN 2.3 g/dl (3.4-5.0); ANION GAP 7 mmol/L (4-13); BLOOD UREA NITROGEN 19.1 mg/dL (7-18); CALCIUM 8.7 mg/dL (8.5-10.1); CO2 25 mmol/L (21-32); GLUCOSE,RANDOM 221 mg/dL (74-106); MAGNESIUM 1.8 mg/dL (1.8-2.4)
[2024-03-13 09:54] LABS: CREATININE 1.4 mg/dL (0.55-1.3)
[2024-03-13 09:55] LABS: SGOT/AST 34 U/L (15-37); SGPT/ALT < 6 U/L (13-61)
[2024-03-13 09:56] LABS: BILIRUBIN,TOTAL 0.3 mg/dL (0.2-1); TOT PROT 5.6 g/dl (6.4-8.2)
[2024-03-13 10:00] LABS: BASO % 0.3 % (0-2.0); EOS % 2.4 % (0-4.5); HEMATOCRIT 30.1 % (32.4-45.2); HEMOGLOBIN 9.8 GM/dL (10.7-15.3); LYMPH % 18.4 % (8-40); MCH 26.8 pg (25.7-33.7); MCHC 32.4 g/dl (32.0-36.0); MEAN CELL VOLUME 82.7 fl (80-96); MEAN PLT VOLUME 7.1 fl (7.5-11.1); MONO % 10.5 % (3.8-10.2); NEUT % 68.4 % (42.8-82.8); PLATELET COUNT 328 10^3/uL (134-434); RBC 3.65 M/mm3 (3.60-5.2); RDW 13.2 % (11.6-15.6); WHITE BLOOD COUNT 9.5 K/mm3 (4.0-10.0)
[2024-03-13 10:02] LABS: ALK PHOS 231 U/L (45-117)
[2024-03-13] MEDS: CEFUROXIME AXETIL 250 MG TABLET PO SCH (11:48)
[2024-03-13 15:02] VITALS: BP 129/60; PULSE 87; TEMP 98.8
[2024-03-13] MEDS ORDERED: INSULIN ASPART SLIDING SCALE (NOVOLOG) 1 VIAL SQ ONE (17:32)
== END 2024-03-13 19:38 | DRG 64 ==
LOC: JER 23:52 → JERBED 03-05 03:54 → JICU 03-05 05:55 → J4W 03-09 19:47 → J8W 03-10 15:28
PROVIDERS: ADMIT Internal Medicine Pulmonary Disease; ATTEND Nurse Practitioner Family
PROC: 5A1945Z Respiratory Ventilation, 24-96 Consecutive Hours (ICD-10-PCS; principal; 2024-03-05)
PROC: 0BH17EZ Insertion of Endotracheal Airway into Trachea, Via Natural or Artificial Opening (ICD-10-PCS; 2024-03-05)
PROC: 06HY33Z Insertion of Infusion Device into Lower Vein, Percutaneous Approach (ICD-10-PCS; 2024-03-05)
PROC: 05HA33Z Insertion of Infusion Device into Left Brachial Vein, Percutaneous Approach (ICD-10-PCS; 2024-03-06)
DX: I61.9 Nontraumatic intracerebral hemorrhage, unspecified (principal); E11.00 Type 2 diabetes mellitus with hyperosmolarity without nonketotic hyperglycemic-hyperosmolar coma (NKHHC); G93.41 Metabolic encephalopathy; J96.02 Acute respiratory failure with hypercapnia; N17.9 Acute kidney failure, unspecified; N39.0 Urinary tract infection, site not specified; E87.1 Hypo-osmolality and hyponatremia; E87.29 Other acidosis; R56.9 Unspecified convulsions; I12.9 Hypertensive chronic kidney disease with stage 1 through stage 4 chronic kidney disease, or unspecified chronic kidney disease; F03.90 Unspecified dementia, unspecified severity, without behavioral disturbance, psychotic disturbance, mood disturbance, and anxiety; E11.51 Type 2 diabetes mellitus with diabetic peripheral angiopathy without gangrene; N18.9 Chronic kidney disease, unspecified; Z68.36 Body mass index [BMI] 36.0-36.9, adult; E78.00 Pure hypercholesterolemia, unspecified; E87.8 Other disorders of electrolyte and fluid balance, not elsewhere classified; K21.9 Gastro-esophageal reflux disease without esophagitis; E78.5 Hyperlipidemia, unspecified
CPT/HCPCS: 0241U-QW; 36415; 36600; 70450-TC; 71045-TC-FY; 80048; 80053; 81003; 82010; 82550; 82553; 82607; 82728; 82747; 82803; 82962; 83036; 83540; 83550; 83605; 83735; 83930; 83935; 84100; 84466; 84484; 85014; 85025; 85045; 85610; 85730; 87040; 87086; 87186; 87481; 87635; 93005; 93010; 94002; 94010; 95816; 97116-GP; 97162-GP; 99291; J2597

== ENCOUNTER 2024-08-29 12:58 | Emergency (ER) | payer OTHER ==
[2024-08-29 13:36] VITALS: PULSE 78; BMI 24.0
[2024-08-29 14:00] VITALS: TEMP 98.3
[2024-08-29 14:20] LABS: ABSOLUTE IMMATURE GRANULOCYTES 0.03 x10^3/uL (0.0-0.031); BASOPHILS # 0.04 x10^3/uL (0.01-0.08); EOSINOPHIL % 2.1 % (0.7-5.8); EOSINOPHILS # 0.17 x10^3/uL (0.04-0.36); HEMATOCRIT 35.5 % (34.1-44.9); MEAN CELL VOLUME 83.9 fl (79.4-94.8); MEAN PLT VOLUME 11.4 fl (9.4-12.3); MONOCYTE # 0.93 x10^3/uL (0.24-0.86); MONOCYTE % 11.6 % (4.7-12.5); PLATELET COUNT 166 x10^3/uL (182-369); RDW 13.6 % (12.5-17.0)
[2024-08-29 14:37] LABS: CHLORIDE 109 mmol/L (98-107); SODIUM 140 mmol/L (136-145)
[2024-08-29 14:39] LABS: CALCIUM 9.1 mg/dL (8.5-10.1)
[2024-08-29 14:40] LABS: ALBUMIN 3.3 g/dl (3.4-5.0); BLOOD UREA NITROGEN 30.2 mg/dL (7-18); CO2 25 mmol/L (21-32); GLUCOSE,RANDOM 108 mg/dL (74-106)
[2024-08-29 14:41] LABS: ANION GAP 6 mmol/L (4-13); POTASSIUM 6.2 mmol/L (3.5-5.1)
[2024-08-29 14:43] LABS: CREATININE 1.7 mg/dL (0.55-1.3); SGOT/AST 69 U/L (15-37)
[2024-08-29 14:45] LABS: BILIRUBIN,TOTAL 0.4 mg/dL (0.2-1)
[2024-08-29 14:46] LABS: ALK PHOS 64 U/L (45-117)
[2024-08-29 14:49] LABS: SGPT/ALT 8 U/L (13-61)
[2024-08-29] MEDS: SODIUM CHLORIDE 0.9% 500 ML INFUS.BAG IV ONE (15:29)
[2024-08-29 15:34] LABS: EPI CELLS 1 /uL (0-25.1); HYALINE CASTS 0 /uL (0-3.1); PH,URINE 6.5 (5.0-8.0); URINE APPEARANCE CLOUDY; URINE BACTERIA >9,000 /uL (0-1359); URINE BILIRUBIN NEGATIVE (NEGATIVE); URINE COLOR YELLOW; URINE GLUCOSE (UA) NEGATIVE (NEGATIVE); URINE KETONE NEGATIVE (NEGATIVE); URINE LEUK ESTERASE TRACE (NEGATIVE); URINE NITRITE NEGATIVE (NEGATIVE); URINE PROTEIN 3+ (NEGATIVE); URINE RBC 21 /uL (0-23.9); URINE UROBILINOGEN 0.2 mg/dL (0.2-1.0); URINE WBC 140 /uL (0-25.8)
[2024-08-29] MEDS ORDERED: CEFTRIAXONE 1 G/50 ML PREMIX 50 ML IVPB ONE (16:13)
[2024-08-29] MEDS: CEFTRIAXONE 1 GM in DEXTROSE 5%-WATER - 50 ML IVPB ONE (16:19)
[2024-08-29 16:41] LABS: POTASSIUM 4.2 mmol/L (3.5-5.1)
[2024-08-29 16:42] LABS: CALCIUM 9.1 mg/dL (8.5-10.1)
[2024-08-29 16:43] LABS: BLOOD UREA NITROGEN 29.8 mg/dL (7-18)
[2024-08-29 16:46] LABS: CREATININE 1.5 mg/dL (0.55-1.3)
[2024-08-29 20:00] VITALS: BP 141/65; RESP 14
== END 2024-08-29 20:02 | disposition home or self-care (01) ==
LOC: JER 12:58
DX: N30.00 Acute cystitis without hematuria (principal); R45.1 Restlessness and agitation; R41.0 Disorientation, unspecified; R60.0 Localized edema
CPT/HCPCS: 0241U-QW; 36415; 71045-TC-FY; 80048; 80053; 81003; 83735; 84100; 85025; 93005; 93010; 99284-25

== ENCOUNTER 2024-08-30 13:05 | Emergency (ER) | payer OTHER ==
[2024-08-30 13:25] VITALS: BP 141/82; PULSE 103; RESP 18; TEMP 98.2; BMI 28.3
[2024-08-30] MEDS ORDERED: FUROSEMIDE 20 MG TABLET (FP) ONE ×2 (13:57→13:59)
[2024-08-30] MEDS ORDERED: DIVALPROEX SODIUM 250 MG TABLET E.C. ONE (13:57)
[2024-08-30] MEDS ORDERED: levETIRAcetam 500 MG TABLET (FP) PO ONE (13:57)
[2024-08-30] MEDS ORDERED: LISINOPRIL 10 MG TABLET ONE ×2 (13:57→14:00)
[2024-08-30] MEDS: VALPROATE SODIUM 250 MG/5 ML UNIT DOSE CUP PO ONE (14:34)
[2024-08-30] MEDS: LISINOPRIL 10 MG TABLET PO ONE (14:34)
[2024-08-30] MEDS: FUROSEMIDE 20 MG TABLET (FP) PO ONE (14:34)
[2024-08-30] MEDS: levETIRAcetam 500 MG TABLET (FP) PO ONE (14:34)
[2024-08-30] MEDS: CEFPODOXIME PROXETIL 200 MG TABLET [NF] PO ONE (14:34)
[2024-08-30] MEDS ORDERED: ACETAMINOPHEN 500 MG TABLET (FP) ONE (16:38)
[2024-08-30] MEDS ORDERED: AMOX TR/POT CLAV 875MG/125MG TABLETS (FP) ONE (16:38)
[2024-08-30] MEDS ORDERED: CEFPODOXIME PROXETIL 200 MG TABLET [NF] PO ONE (17:27)
== END 2024-08-30 18:03 ==
LOC: JER 13:05
DX: F03.90 Unspecified dementia, unspecified severity, without behavioral disturbance, psychotic disturbance, mood disturbance, and anxiety (principal); N30.00 Acute cystitis without hematuria
CPT/HCPCS: 70450-TC; 82962; 99284-25